=== PATIENT | female | born 1955 | race Caucasian/White ===

== ENCOUNTER 2019-06-30 10:05 | Emergency (ER) | payer MEDICARE, SELFPAY ==
[2019-06-30 10:38] VITALS: BP 145/65; PULSE 79; RESP 18; TEMP 36.9; O2SAT 99
--- NOTE | 2019-06-30 10:40 | ED.URI ---
HPI - URI/Sore Throat General Chief Complaint: Upper Respiratory Infection Stated Complaint: pos sinus infection Time Seen by Provider: 06/30/19 10:34 Source: patient and RN notes reviewed Mode of arrival: ambulatory Limitations: no limitations History of Present Illness HPI Narrative: Patient presents today with a 3-week history of sinus pressure, nasal congestion, rhinorrhea, postnasal drip, mild cough. Symptoms have worsened over the last 3 days to include severe right cheek pain and right ear pain. Prior to onset of symptoms, patient had a vitrectomy of the right eye and states that she had to spend most of the preceding 3 weeks lying prone because of this procedure. She was told by her eye doctor that she may have some sinus symptoms due to this positioning. Patient reports history of chronic sinusitis. She has been using saline spray, DayQuil, Flonase. No recent antibiotic use. MD elicited complaint: sinus pain Related Data Home Medications Medication Instructions Recorded Confirmed albuterol sulfate 90 mcg INHALATION 3XW PRN 06/30/19 06/30/19 atorvastatin 20 mg PO DAILY 06/30/19 06/30/19 insulin detemir U-100 [Levemir 45 unit SUBCUT DAILY 06/30/19 06/30/19 FlexTouch U-100 Insuln] lisinopril 2.5 mg PO DAILY 06/30/19 06/30/19 lorazepam 1 mg PO DAILY 06/30/19 06/30/19 metformin 1,000 mg PO BID 06/30/19 06/30/19 Allergies Allergy/AdvReac Type Severity Reaction Status Date / Time codeine AdvReac Mild Dizziness Verified 06/30/19 10:34 Review of Systems Review of Systems: Narrative: CONSTITUTIONAL: Denies body aches, fever, chills, or sweats. EYES: Denies visual changes, redness, or discharge. ENT: Denies sore throat. + Nasal congestion, sinus pressure, postnasal drip, rhinorrhea, right ear pain CARDIOVASCULAR: Denies chest pain, palpitations, or edema. RESPIRATORY: Denies dyspnea.+ Cough GASTROINTESTINAL: Denies abdominal pain, nausea, vomiting, or diarrhea. GENITOURINARY: Denies dysuria or hematuria. SKIN: Denies rash, itching, or wounds. MUSCULOSKELETAL: Denies back pain, joint pain, or myalgia. NEUROLOGIC: Denies headache, numbness, tingling, or weakness. PSYCH: Denies depression or anxiety. [facility] Past Medical History Medical History (Updated 06/30/19 @ 10:44 by Sherlyn Morin, DIA, ) Diabetes Hypercholesterolemia Hypertension Surgical History Surgical History (Updated 06/30/19 @ 10:42 by Sherlyn Morin, [facility], ) H/O vitrectomy Comments At time of signature, I have reviewed and agree with nursing past medical, surgical, social and family history unless otherwise noted. Please see nursing chart for further information. There is no relevant family history pertinent to the presenting complaint Exam Narrative: Exam Narrative: GENERAL: Mild-appearing, well-nourished, and in no acute distress. HEAD: Normocephalic, atraumatic. EYES: EOMI. No redness or drainage. Conjunctivae normal. ENT: Mucous membranes pink and moist. Nares congested. No rhinorrhea. TMs normal bilaterally. Throat normal. Uvula midline. Right maxillary sinus tenderness. NECK: Normal AROM. Supple. No lymphadenopathy. CHEST: No respiratory distress. Clear to auscultation. HEART: Regular rate and rhythm. No murmur appreciated. Normal peripheral pulses. EXTREMITIES: Normal range of motion. No edema. SKIN: Warm, dry, no rash. NEURO: No focal deficits. Alert and oriented x3. Gait steady. PSYCH: Normal affect. No signs of depression or anxiety. Course Vital Signs Vital signs: Vital Signs Temperature 98.4 F 06/30/19 10:38 Pulse Rate 79 06/30/19 10:38 Respiratory Rate 18 06/30/19 10:38 Blood Pressure 145/65 H 06/30/19 10:38 Pulse Oximetry 99 06/30/19 10:38 Temperature 98.4 F 06/30/19 10:38 Pulse Rate 79 06/30/19 10:38 Respiratory Rate 18 06/30/19 10:38 Blood Pressure 145/65 H 06/30/19 10:38 Pulse Oximetry 99 06/30/19 10:38 Reviewed. Pt has been instructed to follow up with he
== END 2019-06-30 10:50 | disposition home or self-care (01) ==
PROVIDERS: Emergency Provider Nurse Practitioner
DX: J01.00 Acute maxillary sinusitis, unspecified (principal); E11.9 Type 2 diabetes mellitus without complications; E78.00 Pure hypercholesterolemia, unspecified; I10 Essential (primary) hypertension
CPT/HCPCS: 99213; G0463

== ENCOUNTER 2024-12-13 11:40 | Outpatient (CLI) | payer MEDICARE, SELFPAY ==
--- NOTE | ~2024-12-13 | XR_ITS ---
EXAMINATION: XR abdomen/kub 1V DATE: 12/13/2024 11:59 INDICATION: Calculus of kidney TECHNIQUE: A supine view of the abdomen on 2 radiographs was obtained. COMPARISON: None. FINDINGS: No free air under the diaphragm. Large amount of stool in nondilated large bowel. Small amount of air in nondilated small bowel. 5 mm calcification projects over the right mid abdomen likely a renal stone. There are a few less than 1.0 cm calcifications projecting over the pelvis which may represent ph leboliths, however, a distal ureteral stone or bladder stone or possible. IMPRESSION: 1. Nonspecific abdomen with a large amount of stool. 2. There is a 5 mm calcification projecting over the right mid abdomen possibly a renal stone. 3. There are a few less than 1.0 cm calcifications projecting over the pelvis which may represent phleboliths, however, a distal ureteral stone or bladder stone or possible. If symptoms persist or worsen, consider a CT of the abdomen and pelvis are further assessment. Reviewed, dictated and finalized at location Q. IMPRESSION: 1. Nonspecific abdomen with a large amount of stool. 2. There is a 5 mm calcification projecting over the right mid abdomen possibly a renal stone. 3. There are a few less than 1.0 cm calcifications projecting over the pelvis w hich may represent phleboliths, however, a distal ureteral stone or bladder sto ne or possible. If symptoms persist or worsen, consider a CT of the abdomen and pelvis are furt her assessment.
== END 2024-12-13 11:41 | disposition home or self-care (01) ==
LOC: MICIMG 11:49
PROVIDERS: PCP Urology; Visit Provider Urology
DX: N20.0 Calculus of kidney (principal)
CPT/HCPCS: 74018

== ENCOUNTER 2025-01-26 11:12 | Outpatient (CLI) | payer MEDICARE, SELFPAY ==
--- NOTE | 2025-01-26 11:34 | ECG_ITS ---
Test Date: 2025-01-26 12:01:50 Measurements Intervals [place] Rate: 74 P: 11 CT: 144 QRS: 62 QRSD: 109 T: 50 QT: 397 QTc: 443 Interpretive Statements SINUS RHYTHM MINIMAL Q WAVES- INF/LAT LEADS BASELINE ARTIFACT- V3 BORDERLINE ECG No previous ECG available for comparison Electronically Signed On 01-26-2025 12:26:23 CDT by Alberto Singer D.O.
[2025-01-26 11:56] LABS: Hematocrit 37.9 % (37.0-47.0); Hemoglobin 12.7 g/dL (12.0-15.0)
[2025-01-26 12:10] LABS: INR 0.9; Prothrombin Time 12.4 Seconds (11.1-14.7)
[2025-01-26 12:12] LABS: Partial Thromboplastin Time 24.8 Seconds (22.3-36.8)
[2025-01-26 12:18] LABS: Add Urine Microscopic? YES; Appearance Urine Clear (Clear); Glucose Urine UA Negative (Negative); Leukocyte Esterase Ur 2+ LEU/UL (Negative); Need Manual Microscopic Reviewed; Nitrate Urine Negative (Negative); Non Pathogenic Casts 0-2; Specific Grav Ur 1.020 (1.001-1.035)
[2025-01-26 14:49] LABS: Anion Gap 9 mmol/L (4-12); Blood Urea Nitrogen 17 mg/dL (7-17); Calcium 9.5 mg/dL (8.4-10.2); Carbon Dioxide 23 mmol/L (22-30); Chloride 104 mmol/L (98-107); Estimated Glomerular Filt Rate > 60; Glucose 83 mg/dL (65-110); Potassium 4.5 mmol/L (3.4-5.0); Sodium 136 mmol/L (137-145)
== END 2025-01-26 11:13 | disposition home or self-care (01) ==
LOC: ANHLAB 11:13
PROVIDERS: Anesthesiology; Visit Provider Urology
DX: R94.31 Abnormal electrocardiogram [ECG] [EKG] (principal); N20.0 Calculus of kidney; C91.10 Chronic lymphocytic leukemia of B-cell type not having achieved remission; E11.9 Type 2 diabetes mellitus without complications; I10 Essential (primary) hypertension; E78.5 Hyperlipidemia, unspecified
CPT/HCPCS: 36415; 80048; 81001; 85014; 85018; 85610; 85730; 93005

== ENCOUNTER 2025-01-28 00:48 | Day surgery (SDC) | payer MEDICARE, SELFPAY ==
--- NOTE | 2025-01-20 16:30 | PM.HPGS ---
History of Present Illness History of Present Illness Consent: Risks, benefits, and alternatives have been discussed and questions answered. Patient agrees to proceed with procedure. 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 ?She had a renal ultrasound at [facility] in [place] in October 2024 that showed a 8 x 13 mm nonobstructing right lower calyceal stone. ?I will have her get a KUB and we will consider ESWL Addendum Note?(Carl Monzon MD; 12/15/2024 6:35 AM) KUB: no identifiable calcified renal calculi. ? Will discuss alkalinization. Addendum Note?(Carl Monzon MD; 12/15/2024 6:22 PM) Despite urinalysis pH of 6 I think we will try urinary alkalinization with potassium citrate for 2 weeks followed by a renal ultrasound. ? I discussed this with the patient on the phone Addendum Note?(Carl Monzon MD; 01/10/2025 7:48 AM) Renal u/s (01/06/25): ?Right kidney: 1cm right lower pole stone ?Left kidney: 5mm left upper pole stone Addendum Note?(Carl Monzon MD; 01/10/2025 5:14 PM) I spoke with patient. ?Unfortunately her renal ultrasound shows persistent stones despite alkalinization. ?She is been reluctant to have ureteroscopy. ?I will plan an intervention on the right kidney on a day when we could do either ESWL or ureteroscopy with laser lithotripsy. ?Specifically, I will plan right ESWL, possible right ureteroscopy with laser lithotripsy, stone extraction, retrograde pyelogram and stent placement Review of Systems Review of Systems: All systems reviewed & are unremarkable except as noted in HPI and below PMFSH Past Medical History Medical History (Updated 01/20/25 @ 16:31 by Carl Monzon MD) Hypercholesterolemia Hypertension Diabetes Surgical History Surgical History (Updated 06/30/19 @ 10:42 by Sherlyn Morin, [facility], ) H/O vitrectomy Meds Home Medications and Allergies Home Medications ?Medication ?Instructions ?Recorded ?Confirmed ?Type albuterol sulfate 90 mcg/actuation 90 mcg inhalation 3XW PRN 06/30/19 06/30/19 History aerosol inhaler Shortness Of Breath amoxicillin 875 mg-potassium 1 tablet PO Q12H 10 days #20 tabs 06/30/19 Rx clavulanate 125 mg tablet (Augmentin) atorvastatin 20 mg tablet 20 mg PO DAILY 06/30/19 06/30/19 History insulin detemir U-100 100 unit/mL 45 unit subcut DAILY 06/30/19 06/30/19 History (3 mL) subcutaneous pen (Levemir FlexTouch U-100 Insulin) lisinopril 2.5 mg tablet 2.5 mg PO DAILY 06/30/19 06/30/19 History lorazepam 1 mg tablet 1 mg PO DAILY 06/30/19 06/30/19 History metformin 1,000 mg tablet 1,000 mg PO BID 06/30/19 06/30/19 History Allergies Allergy/AdvReac Type Severity Reaction Status Date / Time codeine AdvReac Mild Dizziness Verified 06/30/19 10:34 Exam Const: General: no acute distress Resp: Effort & Inspection: normal respiratory effort GI: Inspection: non-distended GI Palp: No abdominal tenderness and No Guarding due to palpation present (GI) Auscultation: normal bowel sounds Assessment and Plan Assessment and plan (1) Right renal stone: Code(s): N20.0 - Calculus of kidney Status: Acute Assessment and Plan: Right ESWL, possible right ureteroscopy with laser lithotripsy, stone extraction, retrograde pyelogram and stent placement
[2025-01-25 09:34] VITALS: BMI 27.9
--- NOTE | 2025-01-25 09:48 | PC.NURSE ---
Addendum entered by Lynette Roberts RN 01/25/25 10:03: DOS is 01/28/25 not 26 pt aware KATIE, pt to get labs and EKG done tomorrow here at [facility] Original Note: [facility] has started construction of its new state of the art ER which will open Spring 2026. With this, we anticipate parking may be a challenge for some our surgical patients and families. Parking spaces are limited but are available for all Surgical, obstetrics, and ER patients sharing this lot. If you arrive and find you are having a hard time finding a parking space, please note that we understand the challenges, please drive around the hospital and park near Hospital Entrance 1. When you enter this entrance, you can ask a volunteer to direct or take you back to the surgical waiting area to check in. We appreciate everyone?s understanding of these expected challenges while we build for your future. Report to the Outpatient Waiting Room, entrance under the green pavilion located off [address], at time ____06:30am___ on date ____01/28/26 ___. Planned Procedure Time: __08:30am .? Time changes happen often and if your time is changed the preop area will call you the afternoon before. - You and your visitor will be asked to self-screen and do not enter if you have any COVID symptoms. Please call surgeon if you need to reschedule. - A mask is optional within the hospital at this time. Patients may have clear liquids (water, carbonated beverages, clear teas, apple juice) until 3 hours prior to surgery with a maximum of 20 ounces. - No food from midnight until time of surgery and no smoking, or chewing tobacco (or any form of nicotine). No chewing gum, candy or mints. Take only the following medications with a SIP of water on the morning of surgery: Albuteral inhaler if needed DO NOT STOP ANY OF YOUR OTHER PRESCRIPTION MEDICATIONS PRIOR TO SURGERY EXCEPT THE FOLLOWING Hold all vitamins and supplements and ASPIRIN/NSAIDS for [address] Monzon Date to take last dose__01/21/25 Please no make-up, nail uzbek, hairspray, perfume, deodorant, or body powder the day of surgery.? No jewelry (including any body piercings) or valuables the day of surgery, leave them at home.? Please take a shower or bath the night before, or the morning of, surgery with an antibacterial soap.? Wear comfortable, loose fitting clothing.? - Jewelry must be removed prior to entering the operating room.? Rings and piercings that are not removed may be cut off. - The hospital will not accept responsibility for valuables.? - Please leave all valuables, including medications, at home the day of surgery. If you are going home after surgery, a licensed courier driver must drive you home.? - NO public transportation without another adult if you receive anesthesia. - We recommend that an adult stay with you for 24 hours following discharge. - We also recommend that you do not drive, make important decision, drink alcoholic beverages, or take any drugs that were not prescribed by your health care provider for at least 24 hours after your discharge time. Follow any additional instructions given to you from your surgeon. Telephone instructions given to __Patient and asked if any additional questions and then verbalized understanding. Patient advised to call surgeon office or pre surgery nurse liaison [phone] if any additional questions.
[2025-01-28] VITALS (7 sets, daily range): BP systolic 101–129; BP diastolic 56–64; PULSE 75–91; RESP 12–18; TEMP 36.6–36.9; O2SAT 99–100; BMI 28.1
--- NOTE | ~2025-01-28 | XR_ITS ---
EXAMINATION: XR abdomen/kub 1V DATE: 01/28/2025 06:39 INDICATION: Pre litho right-sided stone TECHNIQUE: A supine view of the abdomen on 2 radiographs was obtained. COMPARISON: CT abdomen and pelvis 01/28/2025 FINDINGS: Large amount of stool and air in the abdomen. 5 mm calcification in the right kidney. Vascular calcifications are noted. Small amount of air in nondilated small bowel. There are a few less than 1.0 cm calcifications projecting over the pelvis which may represent phleboliths, however, a distal ureteral stone or bladder stone or possible. IMPRESSION: 1. 5 mm calcification in the right kidney. 2. Nonspecific abdomen with a large amount of stool. Reviewed, dictated and finalized at location Q.
--- NOTE | ~2025-01-28 | CT_ITS ---
EXAMINATION: CT abdomen pelvis wo con DATE: 01/28/2025 07:36 INDICATION: Kidney stone. TECHNIQUE: Computed tomography (CT) of the abdomen and pelvis was performed without intravenous contrast. Automated exposure control and iterative reconstruction technique were employed. The dose-length product was 279.22 mGy-cm. COMPARISON: None. FINDINGS: The visualized portions of the lung bases demonstrate mild atelectasis. No pleural effusion. The heart size is normal. No pericardial effusion. There are coronary artery calcifications. The liver, gallbladder, spleen, pancreas, and adrenal glands are normal. There is cortical thinning of the kidneys. There is a 3.3 cm cyst in right kidney. There is a 12 mm stone in right kidney. There is a 2 mm stone in left kidney. The appendix is fluid-filled with diameter of 11 mm. There are no pathologically enlarged lymph nodes. There is no free intraperitoneal fluid. There is moderate lumbar spondylosis. IMPRESSION: 1. Bilateral nonobstructing kidney stones. 2. Appendiceal diameter of 11 mm, which is indeterminate for appendicitis. Correlate with physical exam. Reviewed, dictated and finalized at location E. IMPRESSION: 1. Bilateral nonobstructing kidney stones. 2. Appendiceal diameter of 11 mm, which is indeterminate for appendicitis. Hoang elate with physical exam.
[2025-01-28] MEDS: LACTATED RINGERS 1,000 ML 30 ML IV CONT (07:00)
--- NOTE | 2025-01-28 08:40 | WPDANESEPPF ---
Anes - Initial Pre Proc Eval Procedure: Operation Date: 01/28/25 08:30 Proposed Procedures p Right Extracorporeal Shock Wave Lithotripsy - Carl Monzon MD s Cystoscopy, Possible Right Ureteroscopy with Holmium Laser Lithotripsy, Possible Right Stone Extraction, Possible Right Retrograde Pyelogram, Possible Right Stent Placement - Carl Monzon MD Date/Time: 01/28/25 08:40 Surgeon: Carl Monzon MD Pre Op Diagnosis: Elias Kidney Stones Patient Data Age: 69 Gender: F Height: 1.7 m Weight: 81.5 kg Last Vital Signs Temp 36.9 C 01/28/25 06:30 Pulse 82 01/28/25 06:30 BP 117/60 01/28/25 06:30 Pulse Ox 100 01/28/25 06:30 O2 Del Method Room Air 01/28/25 06:30 Allergies Allergy/AdvReac Type Severity Reaction Status Date / Time codeine AdvReac Mild Dizziness Verified 01/28/25 07:22 Home Medications ?Medication ?Instructions ?Recorded ?Confirmed ?Type albuterol sulfate 90 mcg/actuation 90 mcg inhalation 3XW PRN 06/30/19 01/25/25 History aerosol inhaler Shortness Of Breath atorvastatin 20 mg tablet 20 mg PO DAILY 06/30/19 01/25/25 History aspirin 81 mg capsule 81 mg PO DAILY 01/25/25 01/25/25 History cholecalciferol (vitamin D3) 1,250 1,250 mcg PO WEEKLY 01/25/25 01/25/25 History mcg (50,000 unit) capsule insulin glargine 100 unit/mL (3 22 unit subcut DAILY diabetes 01/25/25 01/25/25 History mL) subcutaneous pen (Lantus Solostar U-100 Insulin) lisinopril 10 mg tablet 10 mg PO DAILY 01/25/25 01/25/25 History metformin 750 mg tablet,extended 750 mg PO .BID 01/25/25 01/25/25 History release 24 hr minoxidil 2.5 mg tablet 2.5 mg PO DAILY 01/25/25 01/25/25 History tirzepatide 7.5 mg/0.5 mL 7.5 mg subcut WEEKLY diabets 01/25/25 01/25/25 History subcutaneous pen injector (Doretha) valacyclovir 1 gram tablet 1,000 mg PO Q12H Shingles 01/25/25 01/25/25 History (Valtrex) vitamin B12 0.5 mg-folic acid 1 mg 1 tablet PO DAILY 01/25/25 01/25/25 History tablet (Foltrate) Laboratory Tests 01/28/25 07:12 POC Capillary Glucose 103 mg/dl (65-105) Patient hx anesthesia problems: none Family hx anesthesia problems: none Results Review: All pre-operative results and documents have been reviewed as part of the pre-operative evaluation. PMFSH Past Medical History Medical History CLL (chronic lymphocytic leukemia) Hypercholesterolemia Hypertension Diabetes Surgical History Surgical History H/O vitrectomy Social History Social History Smoking status: Never smoker Second hand tobacco smoke exposure: Yes Alcohol intake: never Substance use: never Living arrangements: with family Spiritual care concerns: No Anes - Eval Final PreProcedure Day of Procedure 01/28/25 08:40 Patient weight: overweight Heart: regular rate and rhythm Lungs: clear to auscultation Airway: Mallampati scale class 1 Neurological: alert and oriented Last oral intake: >/= 8 hours ASA classification: III Emergent: no Anesthetic plan: proceed Anesthesia type and monitoring: general LMA and standard monitoring Results Review: All pre-operative results and documents have been reviewed as part of the pre-operative evaluation. Informed Consent: The patient's anesthetic plan and its attendant risks and benefits were discussed with the patient/family/POA. Questions were solicited and answers provided to the satisfaction of the patient/family/POA.
[2025-01-28] MEDS: ceFAZolin 2 GM in SODIUM CHLORIDE 0.9% IV 50 ML 100 ML IVPB (08:45)
--- NOTE | 2025-01-28 08:47 | P.HPUP_ITS ---
History and Physical Update Update Date/Time: 01/28/25 08:47 KUB this morning: right renal stone clearly visible / confirmed with CT- abd/pelvis wo contrast. Will proceed with right ESWL. History and Physical has been reviewed, including an updated exam of the patient. There are NO changes in the patient's condition. Risks, benefits, and alternatives have been discussed and questions answered. Patient agrees to proceed with procedure.
--- NOTE | 2025-01-28 09:05 | W.PM.PROC2 ---
Procedure Note - Detailed Date of Procedure 01/28/25 Pre-op Diagnosis Right kidney stone Post-op Diagnosis Same Procedure Performed Right ESWL Surgeon Carl Monzon MD Anesthesia General Description of Procedure The patient was brought to the operative suite where she was placed in the supine position on the Dornier lithotripsy table. The focal point of the lithotripter was placed at a 5-6mm right lower pole calculus. A total of 2500 shocks were delivered at a power setting of 1-4. There appeared to be good fragmentation of the stone. The patient tolerated the procedure well and was taken to the recovery room in good condition. Drains No Packing No Pathology None sent Complications No immediate complications
== END 2025-01-28 10:58 | disposition home or self-care (01) ==
PROVIDERS: Visit Provider Urology
PROC: (CPT 50590; principal; 2025-01-28 08:30)
DX: N20.0 Calculus of kidney (principal); I10 Essential (primary) hypertension; E11.9 Type 2 diabetes mellitus without complications; E78.00 Pure hypercholesterolemia, unspecified; C91.10 Chronic lymphocytic leukemia of B-cell type not having achieved remission; Z79.51 Long term (current) use of inhaled steroids; Z79.4 Long term (current) use of insulin; Z79.84 Long term (current) use of oral hypoglycemic drugs; Z79.82 Long term (current) use of aspirin; Z79.85 Long-term (current) use of injectable non-insulin antidiabetic drugs; Z98.890 Other specified postprocedural states
CPT/HCPCS: 50590; 36415; 74018; 74176; 80048; 81001; 82948; 85014; 85018; 85610; 85730; 87077; 87086; 87186; 93005; J0690; J1100; J2405; J2704; J3010; J7120

== ENCOUNTER 2025-02-08 12:48 | Outpatient (CLI) | payer MEDICARE, SELFPAY ==
--- NOTE | ~2025-02-08 | XR_ITS ---
Abdominal radiograph(s) INDICATION: Right-sided lithotripsy COMPARISON: CT abdomen and pelvis 01/28/2025 TECHNIQUE: 2 view supine AP abdomen FINDINGS: Curvilinear stone overlying right kidney lower pole. Tiny kidney stones left side not seen. No ureteral calculi identified. Scattered colonic gas and stool. Small bowel loops not well seen. No evidence of organomegaly. No acute bony abnormality. IMPRESSION: 1. Curvilinear right renal stone. 2. No ureteral stones identified. Reviewed, dictated and finalized at location R.
--- OUTSIDE RECORDS SUMMARY | 2025-02-08 15:28 | XMS_ITS ---
Author Organization [facility] Address [address] [place] [address] Phone Care Team Providers Care International Relations Professor Name Role Phone Josephine Pagan MD Primary Care Provider [phone] Active Problems Problem Noted Date Diagnosed Date Hypogammaglobulinemia 09/27/2024 CLL (chronic lymphocytic leukemia) 09/23/2024 Current Treatment and Therapy Plans SUPPORT - IVIG (OCTAGAM/PRIVIGEN - GAMMAGARD/GAMUNEX) - CCSCI* Plan Start Date: 10/06/2024 Plan Provider:Jose Alfredo Burciaga MD Linked Problems CLL (chronic lymphocytic antonieta kemia)Hypogammaglobulinemia Treatment Medications Current Day (Day 1 , Cycle 5 - Planned for 02/12/2025) Next Day (Day 1, Cycle 6 - Planned for 03/13/2025) No medications scheduled. No medications schedul ed. No medications scheduled. Past Treatment and Therapy Plans No past plan information found.
--- OUTSIDE RECORDS SUMMARY | 2025-02-08 15:28 | XMS_ITS | Encounter Summary ---
Author Organization [facility] Address [address] [place] [address] Care Team Providers Care Oncology Transplant Network Manager Name Role Phone Josephine Pagan MD Primary Care Provider [phone] Dante Marie MD Primary Care Provider [phone] Reason for Visit * Reason Onset Date Comments Post Op Call 06/05/2022 Left message Encounter Details Date Type Department Care Team (Late Contact Info) Description 06/05/2022 Telephone [facility] ENDOSCOPY [address] [place] [phone] Del Garcia, RN Post Op Call (Left message) Social History Tobacco Use Types Packs/Day Years Used Date Smoking Tobacco: Never Smokeless Tobacco: Never Alcohol Use Standard Drinks/Week Comments No 0 (1 standard drink = 0.6 oz pur e alcohol) Comments Unknown Sex and Gender Information Value Date Recorded Sex Assigned at Not on file 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 Author Medication Management General On track( 024 2:04 PM BEADING MACHINE OPERATOR) Denisha Hawk, RN Note: Expected end date: on-going Interventions: Take all medications as prescribed Let your doctor know right away about any changes in your medications Make sure to request a refill of your medication at least one week prior to your last dose documented as of this encounter Visit Diagnoses Not on filedocumented in this encounter Care Teams Oncology Transplant Network Manager Relationship Specialty Start Date End Date Josephine Pagan MD PCP - General 09/09/17 09/16/22 Dante Marie MD [address] [place] [address] PCP - General Family Medicine 09/17/22 documented as of this encounter
--- OUTSIDE RECORDS SUMMARY | 2025-02-08 15:28 | XMS_ITS | Encounter Summary ---
Author Organization [facility] Address [facility] [place] [address] Care Team Providers Care Drug Abuse Program Coordinator Name Role Phone Teressa Collazo [facility]- Unavailable [phone] Sukumar Evans MD Primary Care Provider [phone] Nadeen Wall MD Unavailable Geneva Zelaya MD Unavailable Encounter Details Date Type Department Care Team (Latest Contact Info) Description 12/09/2024 MyChart Message Enc [facility] Multispecialty Care - [facility] [address] [facility], [address] [place] [phone] Kana Person MD [address] [facility] [address] [place], [place] [phone] MRI of the ABDOMEN Social History Tobacco Use Types Packs/Day Years Used Date Smoking Tobacco: Never Passive Smoke Exposure: Never Smokeless Tobacco: Never Alcohol Use Standard Drinks/Week Comments No 0 (1 standard drink = 0.6 oz pur e alcohol) AUDIT-C Answer Date Recorded Frequency of Alcohol Consumption Never 03/22/2019 Average Number of Drinks Not on file 019 Frequency of Binge Drinking Not on file 05/2018 PHQ-2 Answer Date Recorded Patient Health Questionnaire-2 Score 0 10/15/2024 Comments No Sex and Gender Information Value Date Recorded Sex Assigned at Female 10/11/2024 9:43 AM CDT Legal Sex Female 8:53 AM BLACK STUDIES PROFESSOR Gender Identity Female 10/11/2024 9:43 AM CDT Sexual Orientation Not on file documented as of this encounter Plan of Treatment Upcoming Encounters Date Type Department Care Team (Late st Contact Info) Description 04/27/2025 8:40 AM BLACK STUDIES PROFESSOR Office Visit [facility] Family Medicine [address] [address] Sukumar Evans MD [address] [place] [phone] 01/02/2026 9:15 AM CDT Office Visit [facility] [place] [phone] Geneva Zelaya MD [address] [place], [place] [phone] documented as of this encounter Visit Diagnoses Not on filedocumented in this encounter Care Teams Drug Abuse Program Coordinator Relationship Specialty Start Date End Date Sukumar Evans MD [address] [place] [address]. [place] [phone] PCP - General FAMILY PRACTICE 03/09/24 Teressa Collazo, DIA- Nurse Practitioner Nurse Practitioner Family 01/24/22 Nadeen Wall MD [address] [place] [address] [employer] CLINICAL CARDIAC ELECTROPHYSIOLOGY 10/04/24 Geneva Zelaya MD [address] [place], [place] [phone] [employer] CARDIOVASCULAR DISEASE 10/04/24 documented as of this encounter
--- OUTSIDE RECORDS SUMMARY | 2025-02-08 15:28 | XMS_ITS | Encounter Summary ---
Author Organization [facility] Address [facility] [place] [address] Care Team Providers Care Compensation/Benefits Specialist Name Role Phone Teressa Collazo [facility]- Unavailable [phone] Sukumar Evans MD Primary Care Provider [phone] Nadeen Wall MD Unavailable Geneva Zelaya MD Unavailable Encounter Details Date Type Department Care Team (Latest Contact Info) Description 01/30/2025 MyCVeracodet Message Enc [facility] Multispec[facility]ty Care - [facility] [address] [facility], [address] [place] [phone] Kana Person MD 3 [facility] [address] [place], [place] [phone] MRI RESULTS 01/19/25 Social History Tobacco Use Types Packs/Day Years Used Date Smoking Tobacco: Never Passive Smoke Exposure: Never Smokeless Tobacco: Never Alcohol Use Standard Drinks/Week Comments Not Currently 0 (1 standard drink = 0.6 oz pure alcohol) Maybe once a year during holiday AUDIT-C Answer Date Recorded Frequency of Alcohol Consumption Never 03/22/2019 Average Number of Drinks Not on file 019 Frequency of Binge Drinking Not on file 05/2018 PHQ-2 Answer Date Recorded Patient Health Questionnaire-2 Score 0 01/25/2025 Comments No Sex and Gender Information Value Date Recorded Sex Assigned at Female 10/11/2024 9:43 AM CDT Legal Sex Female 8:53 AM MANDREL MAKER Gender Identity Female 10/11/2024 9:43 AM CDT Sexual Orientation Not on file documented as of this encounter Plan of Treatment Upcoming Encounters Date Type Department Care Team (Late st Contact Info) Description 04/27/2025 8:40 AM MANDREL MAKER Office Visit [facility] Family Medicine - [place] [address] [place] [address] Sukumar Evans MD [address] [place] [address] 01/02/2026 9:15 AM CDT Office Visit [facility] [address] [place] [phone] Geneva Zelaya MD [address] [place], [place] [phone] documented as of this encounter Visit Diagnoses Not on filedocumented in this encounter Care Teams Compensation/Benefits Specialist Relationship Specialty Start Date End Date Sukumar Evans MD [address] [place] [phone] PCP - General FAMILY PRACTICE 03/09/24 Teressa Collazo FNP- Nurse Practitioner Nurse Practitioner Family 01/24/22 Nadeen Wall MD [address] [place] [phone] [employer] CLINICAL CARDIAC ELECTROPHYSIOLOGY 10/04/24 Geneva Zelaya MD [address] [place] [phone] [employer] CARDIOVASCULAR DISEASE 10/04/24 documented as of this encounter
--- OUTSIDE RECORDS SUMMARY | 2025-02-08 15:28 | XMS_ITS | Clinical Summary ---
Author Organization [facility] Address [address] [place] [phone] Care Team Providers Care Ruling Machine Operator Name Role Phone No, Physician Primary Care Provider [phone] Rico Reyes OD Unavailable [phone] Allergies Active Allergy Reactions Criticality Noted Date Comments Bacitracin Unknown,Swelling,Ot her (See comments) High 09/06/2019 reddness and tearing reddness and tearing Other reaction(s): Eyes Water & Itch Codeine Dizziness,Other (See comments),Rash Medium 08/05/2011 dizzy Guaifenesin Itching,Rash Medium 08/05/2011 Hydrocodone-Acetamino phen Other (See comments),Rash High 08/05/2011 nightmares Iodine Rash Medium 08/05/[address] scan Morphine Dizziness,Nausea And Vomiting,Other (See comments),Nausea & Vomiting Low 04/09/2016 Hypertension High blood pressure Other reaction(s): Other (see comment), Vomiting Hypertension Tramadol Nausea And Vomiting,Nausea & Vomiting Low 11/13/2013 Medications traZODone (DESYREL) 50 mg tablet Take 1 tablet (50 mg total) by mouth nightly 5 Active Mounjaro 7.5 mg/0.5 mL pen injector injection Inject 0.5 mL (7.5 mg total) under the skin once a week 4 Active metFORMIN XR (GLUCOPHAGE XR) 750 mg 24 hr tablet TAKE 2 TABLETS (1,500 MG TOTAL) BY MOUTH EVERY DAY WITH BREAKFAST 5 Active lisinopriL (PRINIVIL,ZESTR IL) 10 mg tablet Take 1 tablet (10 mg total) by mouth daily 4 Active atorvastatin (LIPITOR) 20 mg tablet Take 1 tablet (20 mg total) by mouth daily 4 Active moxifloxacin (VIGAMOX) 0.5 % ophthalmic solution Administer 1 drop into the right eye 4 (four) times a day 5 mL 5 Active valACYclovir (VALTREX) 1 gram tabletIndicatio ns:HSV epithelial keratitis 1 gram once a day po 61 tablet 3 5 Active moxifloxacin (VIGAMOX) 0.5 % ophthalmic solution Administer 1 drop into both eyes 3 (three) times a day 3 mL 1 5 Active Active Problems Problem Noted Date Diagnosed Date 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 3 Months Social History Tobacco Use Types Packs/Day Years Used Date Smoking Tobacco: Never Assessed Comments Unknown Sex and Gender Information Value Date Recorded Sex Assigned at Not on file Legal Sex Female 3:42 PM RESIDENT CARE PROVIDER Gender Identity Not on file Sexual Orientation Not on file Obstetrics History Plan of Treatment Health Maintenance Due Date Last Done Comments Colon Cancer Screening-Colonoscopy 1955 Depression Screening 1955 Fall Risk Assessment 1955 Hepatitis C Screening 1955 Well Visit 65+ 2018 Covid-19 Vaccine (2024-2 6 season) 2024 01/31/2021, 07/07/2020, 06/15/2020 Influenza Vaccine (#1) 2024 3, 02/22/2022, 02/15/2021, Additional history exists Breast Cancer Screening-Mammogram 05/20/2025 05/20/2024, 05/20/2024, 04/29/2023, Additional history exists Osteoporosis Screening-Bone Density Scan 08/04/2025 08/05/2023 DTaP/Tdap/Td Vaccine (3 - Td or Tdap) 11/21/2031 11/20/2021, 01/16/2012, 01/01/2007, Additional history exists Hepatitis B Screening Completed 08/28/1990 Zoster Vaccine Completed 04/06/2019, 09/2018, 02/07/2014 Pneumococcal vaccine 65+ Completed 024, 04/04/2023, 12/25/2018, Additional history exists Insurance [employer] MED[employer]ARE Care Teams Ruling Machine Operator Relationship Specialty Start Date End Date No, Physician PCP - General 05/19/24 Rico Reyes OD [id number] [place] [address] Referring Physician Optometry 01/14/25
--- OUTSIDE RECORDS SUMMARY | 2025-02-08 15:28 | XMS_ITS | Encounter Summary ---
Author Organization [facility] Address [facility] [place] [address] Care Team Providers Care Lean Consultant Name Role Phone Teressa Collazo [facility]- Unavailable [phone] Sukumar Evans MD Primary Care Provider Nadeen Wall MD Unavailable Geneva Zelaya MD Unavailable Encounter Details Date Type Department Care Team (Late st Contact Info) Description 12/23/2024 [facility] [address] [place] [phone] Sukumar Evans MD [facility] [facility] [place] [address] Social History Tobacco Use Types Packs/Day Years [...] AM CDT Legal Sex Female 8:53 AM PROGRAM SUPPORT ASSISTANT Gender Identity Female 10/11/2024 9:43 AM CDT Sexual Orientation Not on file documented as of this encounter Plan of Treatment Upcoming Encounters Date Type Department Care Team (Late st Contact Info) Description 04/27/2025 8:40 AM PROGRAM SUPPORT ASSISTANT [facility] - [place] [address] [place] [phone] Sukumar Evans MD [facility] [facility] [place] [address] 01/02/2026 9:15 AM CDT Office Visit [facility] [place] [phone] Geneva Zelaya MD [address] [place], [place] [phone] documented as of this encounter Visit Diagnoses Not on filedocumented in this encounter Care Teams Lean Consultant Relationship Specialty Start Date End Date Sukumar Evans MD [address] [place] [address]. [place] [phone] PCP - General FAMILY PRACTICE 03/09/24 Teressa Collazo FNP- Nurse Practitioner Nurse Practitioner Family 01/24/22 Nadeen Wall MD [address] [place] [phone] [facility] [employer] CLINICAL CARDIAC ELECTROPHYSIOLOGY 10/04/24 Geneva Zelaya MD [address] [place], [place] [phone] [facility] CARDIOVASCULAR DISEASE 10/04/24 documented as of this encounter
--- OUTSIDE RECORDS SUMMARY | 2025-02-08 15:28 | XMS_ITS | Clinical Summary ---
Author Organization [facility] Address [address] [place] [address] Care Team Providers Care Weight Count Operator Name Role Phone Teressa Collazo [facility]- Unavailable [phone] Sukumar Evans MD Primary Care Provider [phone] Nadeen Wall MD Unavailable Geneva Reece MD Unavailable Allergies Active Allergy Reactions Criticality Noted Date Comments Bacitracin Eyes Water & Itch 10/07/2019 Codeine Dizziness 03/22/2019 Guaifenesin Itching,Rash Medium 08/05/2011 Hydrocodone-Acetaminoph en Other (see comment),Rash,Unknow n High 08/05/2011 nightmares Iodine Rash Medium 08/05/[address] scan Morphine Other (see comment),Vomiting,Di zziness 03/22/2019 Hypertension Tramadol Nausea and Vomiting,Vomiting 11/13/2013 Medications aspirin EC (ECOTRIN) 81 MG tablet Take 1 tablet (81 mg total) by mouth daily. Active Accu-Chek FastClix Lancets Misc every day 020 Active vitamin B-12 (CYANOCOBALAMIN ) 1000 MCG tablet Take 1 tablet (1,000 mcg total) by mouth daily. Active ketoconazole (NIZORAL) 2 % cream APPLY TO FOOT TWICE A DAY 023 Active ketoconazole (NIZORAL) 2 % shampoo APPLY TO SCALP 3 TIMES WEEKLY 023 Active vitamin D3 (CHOLECALCIFERO L) 25 mcg tablet Take 1 tablet (1,000 Units total) by mouth daily. Active minoxidil (LONITEN) 2.5 MG tablet TAKE 1/4 TABLET BY MOUTH EVERY DAY X 3 MONTHS, THEN INCREASE TO 1/2 TABLET EVERY DAY 024 Active B-D UF III MINI PEN NEEDLES 31G X 5 MM MiscIndications :Type 2 diabetes mellitus with hyperglycemia, with long-term current use of insulin ([facility] HHS/HCC) USE DIRECTED UP TO TWICE DAILY (WITH LEVEMIR PEN) 200 each 3 024 Active ondansetron (ZOFRAN) 4 MG tablet Take 1 tablet (4 mg total) by mouth every 8 (eight) hours as needed. 024 Active ACCU-CHEK GUIDE test stripIndication s:Type 2 diabetes mellitus with hyperglycemia, with long-term current use of insulin ([facility] HHS/HCC) 1 strip by Other route 3 (three) times daily as needed. Use as instructed 100 strip 5 024 Active lisinopril (PRINIVIL) 10 MG tabletIndicatio ns:Primary hypertension Take 1 tablet (10 mg total) by mouth daily. 90 tablet 3 025 Active metFORMIN XR (GLUCOPHAGE-XR) 750 MG 24 hr tabletIndicatio ns:Type 2 diabetes mellitus with hyperglycemia, with long-term current use of insulin ([facility] HHS/HCC) TAKE 2 TABLETS (1,500 MG TOTAL) BY MOUTH EVERY DAY WITH BREAKFAST 180 tablet 3 025 Active moxifloxacin (VIGAMOX) 0.5 % ophthalmic solution 1 drop. 025 Active atorvastatin (LIPITOR) 20 MG tabletIndicatio ns:Type 2 diabetes mellitus with hyperglycemia, with long-term current use of insulin ([facility] HHS/HCC) Take 1 tablet (20 mg total) by mouth daily. 90 tablet 3 025 Active LANTUS SOLOSTAR 100 UNIT/ML injection (PEN)Indication s:Type 2 diabetes mellitus with hyperglycemia, with long-term current use of insulin ([facility] HHS/HCC) Inject 20 Units into the skin nightly at bedtime. 6 mL 2 025 Active MOUNJARO 7.5 MG/0.5ML injectionIndica tions:Type 2 diabetes mellitus with hyperglycemia, with long-term current use of insulin ([facility] HHS/HCC) INJECT 1 SYRINGE SUBCUTANEOUSLY ONCE A WEEK FOR DIABETES 12 mL 025 Active triamcinolone (KENALOG) 0.1 % cream APPLY CREAM EXTERNALLY TWICE DAILY TO AFFECTED AREA FOR 14 DAYS 025 Active albuterol sulfate HFA 108 (90 Base) MCG/ACT inhalerIndicati ons:Moderate asthma, unspecified whether complicated, unspecified whether persistent (HHS/HCC) TAKE 1 2 PUFFS INHALED BY MOUTH EVERY 4 (FOUR) HOURS NEEDED FOR WHEEZING / COUGH 18 g 5 025 Active valACYclovir (VALTREX) 1 g tablet Take 2 tablets (2,000 mg total) by mouth daily. 025 Active albuterol (PROVENTIL) (2.5 MG/3ML) 0.083% nebulizer solutionIndicat ions:Moderate asthma, unspecified whether complicated, unspecified whether persistent (HHS/HCC) INHALE 3 MLS (2.5 MG TOTAL) NEBULIZED EVERY 4 (FOUR) HOURS NEEDED FOR WHEEZING 360 mL 2 025 Active fluticasone propionate (FLONASE) 50 MCG/ACT nasal sprayIndication s:Acute non-recurrent maxillary sinusitis USE 1 SPRAY BY EACH NOSTRIL ROUTE 2 (TWO) TIMES DAILY 16 g 5 023 2024 Discontinued omeprazole (PRILOSEC) 40 MG capsule Take 1 capsule (40 mg total) by mouth as needed. 023 2024 Discontinued ipratropium (ATROVENT) 0.03 % nasal spray SPRAY 2 SPRAYS INTO EACH NOSTRIL TWICE A DAY 024 2024 Discontinued [place]-3 Fatty Acids (FISH OIL) 500 MG capsule Take 500 mg by mouth daily. 2024 Discontinued albuterol sulfate HFA 108 (90 Base) MCG/ACT inhalerIndicati ons:Moderate asthma, unspecified whether complicated, unspecified whether persistent (HHS/HCC) TAKE 1 2 PUFFS INHALED BY MOUTH EVERY 4 (FOUR) HOURS NEEDED FOR WHEEZING / COUGH 18 g 5 024 2024 Discontinued(R eorder) albuterol (PROVENTIL) (2.5 MG/3ML) 0.083% nebulizer solutionIndicat ions:Moderate asthma, unspecified whether complicated, unspecified whether persistent (HHS/HCC) INHALE 3 MLS (2.5 MG TOTAL) NEBULIZED EVERY 4 (FOUR) HOURS NEEDED FOR WHEEZING 360 mL 2 024 2024 Discontinued(R eorder) Beclomethasone Diprop HFA (QVAR REDIHALER) 80 MCG/ACT AEROSOL, BREATH ACTIVATEDIndica tions:Moderate asthma, unspecified whether complicated, unspecified whether persistent (HHS/HCC) Inhale 2 puffs into the lungs 2 (two) times a day. 10.6 g 5 024 2024 Discontinued tirzepatide (MOUNJARO) 7.5 MG/0.5ML injectionIndica tions:Diabetes Mellitus Inject 7.5 mg into the skin every 7 days. Indications: Diabetes 6 mL 3 024 2024 Discontinued traZODone (DESYREL) 50 MG tabletIndicatio ns:Primary insomnia Take 1 tablet (50 mg total) by mouth nightly at bedtime. 90 tablet 1 025 2024 Discontinued valACYclovir (VALTREX) 1 g tablet Take 1 tablet (1,000 mg total) by mouth. 025 2024 Discontinued(R eorder) NON FORMULARY 2024 Discontinued Active Problems Problem Noted Date Diagnosed Date Chronic sinusitis 01/25/2025 Chronic allergic conjunctivitis 01/25/2025 Allergic rhinitis due to pollen 01/25/2025 Allergic rhinitis due to animal hair and dander 01/25/2025 Melanoma of back 01/25/2025 Moderate asthma, unspecified whether complicated, unspecified whether persistent 01/25/2025 CKD stage G2/A1, GFR 60-89 a nd albumin creatinine ratio <30 mg/g 10/05/2024 Lesion of right wainwright kidney 09/28/2024 Kidney stones 09/28/2024 Hypogammaglobulinemia 09/27/2024 Herpes zoster conjunctivitis 09/07/2024 RUQ pain 08/13/2024 HSV epithelial keratitis 05/20/2024 Iritis due to infection 05/20/2024 Pseudophakia 05/20/2024 Elevated vitamin B12 level 03/31/2024 Class 1 obesity due to exces s calories with serious comorbidity and body mass index (BMI) of 31.0 to 31.9 in adult 10/08/2023 Primary hypertension 03/31/2023 Schatzki's ring of distal esophagus 05/22/2022 History of nonmelanoma skin cancer 05/22/2022 Hypertrophy of both inferior nasal turbinates Mitral annular calcification 06/05/2021 Disorder of refraction and accommodation 017 Dysphagia, unspecified type 04/23/2016 Chronic lymphocytic leukemia of B-cell type not having achieved remission 09/11/2015 Overview (08/15/2020): Overview: 13q del, IgVH mutated and Lyons 70 negative 13q del, IgVH mutated and Lyons 70 negative Primary insomnia 08/07/2015 Type 2 diabetes mellitus with hyperglycemia 06/21 Dyslipidemia 07/20/2015 Sacroiliitis, not elsewhere classified 5 Resolved Problems Problem Noted Date Diagnosed Date Resolved Date Hypertriglyceridemia 03/31/2024 025 Deviated nasal septum 05/21/20222023 Allergic rhinitis 08/14/2020 01/25/2025 Residual foreign body in soft tissue 08/14/2020 05/21/2022 Fatigue 10/09/2018 03/20/2022 Snoring 10/09/2018 03/20/2022 Radiculopathy of lumbar region 10/18/2014 05/21/2022 Encounters Date Type Department Care Team Description 02/02/2025 Orders Only [facility] Multispecialty Care - [facility] [address] [place] [address] Violetta Person MD 02/02/2025 Results Follow-Up [facility] Multispecialty Care - [facility] [address] [place] [address] Bernice Miller NP MRI ABD WWO CON 01/30/2025 MyChart Message Enc [facility] Multispecialty Care - [facility] [address] [place] [address] Violetta Person MD MRI RESULTS 01/19/25 01/25/2025 10:20 AM CDT Office Visit [address] [address] Sukumar Evans MD Surgical Clearance (Patient presents today for a surgical clearance and 6 month FU on Diabetes. ) 01/25/2025 Travel 01/19/2025 11:39 AM CDT - 01/19/2025 11:59 PM CDT Hospital Encounter [facility] [address] [place] [address] Bernice Miller NP Discharge Disposition: Home or Self Care (Routine Discharge) 01/19/2025 Travel 01/10/2025 Telephone [facility] [address] [place] [phone] Geneva Reece MD Results 01/06/2025 7:46 AM CDT - 01/06/2025 11:59 PM CDT Hospital Encounter [facility] [address] [place] [address] Philip Monzon MD Discharge Disposition: Home or Self Care (Routine Discharge) 01/06/2025 Travel 01/03/2025 Patient Outreach [address] [address] Lynsey Guerrero MA Other ([employer] Care Gaps) 01/03/2025 Patient Outreach [address] [address] Sukumar Evans MD Error 12/31/2024 Telephone [facility] [address] [place] [address] Geneva Reece MD Orders (ECHO) 12/30/2024 2:00 PM CDT Office Visit [facility] [address] [place] [address] Geneva Reece MD Heart Problem 12/30/2024 Telephone [facility] [address] [place] [address] Geneva Reece MD Appointment Request 12/30/2024 Orders Only [facility] [address] [place] [address] Geneva Reece MD 12/30/2024 Travel 12/23/2024 E-Visit [address] [address] Sukumar Evans MD 12/17/2024 MyChart Message Enc [address] [address] Sukumar Evans MD Medication renewels 12/09/2024 MyChart Message Enc [facility] Multispecialty Care - [facility] [address] [place] [address] Violetta Person MD MRI of the ABDOMEN 11/30/2024 Orders Only [facility] [address] [place] [address] Geneva Reece MD 11/29/2024 7:56 AM CDT - 11/29/2024 11:59 PM CDT Hospital Encounter [facility] [id number] [place] [address] Violetta Person MD Discharge Disposition: Home or Self Care (Routine Discharge) 11/29/2024 Travel 11/24/2024 Travel 11/10/2024 Scan HEALTH INFO SRVCS Scanned, [facility] from Last 3 Months Immunizations Immunization Administration Dates Next Due Fluad influenza vaccine, Ruben drivalent (aIIV4), Inactivated, adjuvanted, preservative free, 0.5 mL,IM use 12/20/2019 Flucelvax 6 Months+ (Prefill ed Syringe) 02/11/2018 Fluzone High Dose - >Age 65 (Prefilled Syringe) 01/03/2016 Influenza (Generic) 12/20/2019, 9,02/12/2018,2016,01/03/2016,02/28/2015,01/18/2013,0 01/16/2012,01/21/2008,03/13/2005, 004,02/22/1998 Influenza Adult (Generic) 01/31/2023,07/2021,02/15/2021,2019,03/19/2019,02/12/2018,02/04/2017,0 01/03/2016,02/28/2015,01/18/2013, 012,01/21/2008,03/13/2005,02/21/2004, PFIZER COVID-19 (ORIGINAL FORMULATION, PURPLE CAP) mRNA, LNP-S, PF, 30 MCG/0.3 ML DOSE 01/31/2021,07/07/2020,06/15/2020 Pneumococcal (Pneumovax 23) 06/30/2018, 8 Pneumococcal (Prevnar 13) 12/25/2018,01/03/2016 Pneumococcal (Prevnar 20) 10/08/2023,04/04/2023 Shingrix 04/06/2019, 9,12/25/2018,2018 Td 08/28/1990 Td (Tenivac) preservative free 01/01/2007 Td, Adsorbed, Preservative F ree, Adult Use, Lf Unspecified 01/01/2007 Tdap (Generic) 11/20/2021,01/16/2012 Tetanus Toxoid Inj 08/28/1990 Zoster (Zostavax) 47783 Unt/0.65Ml 02/07/2014 Family History Medical History Relation Comments Alcohol Abuse Father Early life Heart Attack Father Heart Disease Father Open Heart Father Stent Cardiac Father Arthritis Mother Drug Abuse Mother Prescription Heart Disease Mother Open Heart Mother Stent Cardiac Mother Valve Disease Paternal Grandfather Heart Attack Paternal Grandmother Breast Cancer Neg Hx Relation Status Comments Brother Father Mother Paternal Grandfather Paternal Grandmother Social History Tobacco Use Types Packs/Day Years Used Date Smoking Tobacco: Never Passive Smoke Exposure: Never Smokeless Tobacco: Never Tobacco Cessation:Counseling Given: No Alcohol Use Standard Drinks/Week Comments Not Currently [...] AM CDT Legal Sex Female 8:53 AM [employer]ING [employer] Gender Identity Female 10/11/2024 9:43 AM CDT Sexual Orientation Not on file Last Filed Vital Signs Vital Sign Reading Time Taken Comments Blood Pressure 118/65 01/25/2025 10:29 AM CDT Pulse 77 01/25/2025 10:29 AM CDT Temperature 36.4 C (97.5 F) 01/25/2025 10:29 AM CDT Respiratory Rate 18 01/25/2025 10:2 9 AM CDT Oxygen Saturation 99% 01/25/2025 10: 29 AM CDT Inhaled Oxygen Concentration - - Weight 82.9 kg (182 lb 12.8 oz) 025 10:29 AM CDT Height 170.2 cm (5' 7) 01/25/2025 10:2 9 AM CDT Body Mass Index 28.63 01/25/2025 10:29 AM CDT Plan of Treatment Upcoming Encounters Date Type Department Care Team (Late st Contact Info) Description 04/27/2025 8:40 AM [employer]ING OV[employer]ENDER Office Visit [facility] Family [facility] [address] [place] [address] Sukumar Evans MD [address] [facility] [place] [address] 01/02/2026 9:15 AM CDT Office Visit [facility] [place] [phone] Geneva Reece MD [address] [place] [address] Health Maintenance Due Date Last Done Comments RSV Immunization or 60+ Years (1 - Risk 60-74 years 1-dose series) 2013 Annual Medicare Wellness Visit 2018 Diabetes: Retinopathy Eye Exam 01/06/2025 01/07/2024, 07/09/2023, 06/09/2023 Influenza Adult (#1) 2025 01/31/2023, 02/22/2022, 02/15/2021, Additional history exists Kidney Health Evaluation 03/31/2025 03/31/2024 Lipid Panel 03/31/2025 03/31/2024, 03/22, 11/12/2021, Additional history exists Colorectal Cancer Screening Colonoscopy (10 Years) 06/04/2025 06/04/2022 Hemoglobin A1C 07/26/2025 01/25/2025, 08/20, 03/09/2024, Additional history exists COVID-19 Vaccine ( season) 2026 01/31/2021, 07/07/2020, 06/15/2020 Postponed from 12/20/2024 (Patient Refused) Mammogram Screening 05/20/2026 05/20/2024, 04/29/2023, 01/16/2022, Additional history exists DTaP, Tdap and Td Vaccines (3 - Td or Tdap) 11/21/2031 11/20/2021, 01/16/2012, 01/01/2007, Additional history exists Zoster Vaccines Completed 04/06/2019, 03/21, 12/25/2018, Additional history exists Hepatitis C Completed 04/10/2023 Dexa Scan (General) Completed 08/05/2023, 01/18/2020, 01/18/2020 Pneumococcal Vaccine: 50+ Years Completed 10/08/2023, 04/04/2023, 12/25/2018, Additional history exists PHQ-2 (Physician Fowler) Completed 01/25/2025 Hepatitis A Vaccines Aged Out No long er eligible based on patient's age to complete this topic Meningococcal B Vaccine Aged Out No l onger eligible based on patient's age to complete this topic Meningococcal Vaccine Aged Out No misael tommy eligible based on patient's age to complete this topic RSV Immunizations Under 20 Months Aged Out No longer eligible based on patient's age to complete this topic Procedures Procedure Name Priority Date/Time Associated Diagnosis Comments COLLECT.CAPILLARY (FNGR,HEEL,EAR) Routine 01/25/2025 10:13 AM CDT Type 2 diabetes mellitus with hyperglycemia, with long-term current use of insulin ([facility]) HEMOGLOBIN, GLYCOSYLATED Routine 01/25/2025 Type 2 diabetes mellitus with hyperglycemia, with long-term current use of insulin ([facility]) MRI ABD WWO CON Routine 01/19/2025 1:03 PM CDT RUQ pain Nausea USE ECHOCARDIOGRAM Routine 01/06/2025 2: 51 PM CDT Dyslipidemia Primary hypertension Mitral annular calcification US RETROPERITONEAL COMP Routine 01/07/20 25 9:01 AM CDT Bilateral kidney stones ELECTROCARDIOGRAM (NON MIDMARK ACQUIRED) Routine 12/30/2024 1:44 PM CDT Dyslipidemia Primary hypertension NM HEPATOBILIARY SCAN W/GB EJECTION FRACTION Routine 11/29/2024 10:00 AM CDT RUQ pain Nausea MG SCREENING W JACKELINE MICHAEL DIGI Routine 05/20/2024 8:40 AM [employer]ING [employer] Visit for screening mammogram LIPID PANEL Routine 03/31/2024 7:59 AM [employer]ING [employer]ER Dyslipidemia DIABETIC RETINOPATHY EXAM (POSITIVE)(SCAN ORDER) Routine 01/07/2024 BONE DENSITY/DEXA Routine 08/05/2023 1:1 9 PM CDT Postmenopausal HEPATITIS C ANTIBODY Routine 04/10/2023 8:39 AM [employer]ING [employer]ER Need for hepatitis C screening test COLONOSCOPY GENERIC (SCAN ORDER) Routine 06/04/2022 from Last 3 Months or Most Recently Relevant to Health Maintenance Results * HEMOGLOBIN, GLYCOSYLATED (01/25/2025) HGB A1C 5.8 % JANET BOYDLOH 01/25/2025 Sukumar Evans MD LABORATORY Final Result [facility]ORD[facility]YD [address] [place] [address], * MRI ABD WWO CON (01/19/2025 1:03 PM CDT) Anatomical Region Laterality Modality Abdomen Magnetic Resonan ce 01/30/2025 3:43 PM CDT Impressions 01/30/2025 3:48 PM CDT IMPRESSION: 1. APPARENT FAILED/EXTRAVASATED ATTEMPT AT INTRAVENOUS CONTRAST ADMINISTRATION. THIS IS AN ESSENTIALLY NONCONTRAST STUDY A RESULT. 2. NO SIGNIFICANT ABNORMALITY IS DEMONSTRATED. Signed: Wilfrido Nair MD Referred By: BERNICE MILLER Interpreted By: Wilfrido Nair MD, 01/30/2025 3:43 PM Narrative 01/30/2025 3:48 PM CDT [facility] [address] [facility] [place] [address] PATIENT NAME: JACKIE HOUSTON EXAM: MRI abdomen with and without contrast DATE OF EXAM: 01/19/2025 COMPARISON EXAM: CT 2020, 03/22/2019 INDICATION: History of chronic lymphocytic leukemia. Right upper quadrant pain TECHNIQUE: Multiplanar/multisequence MRI abdomen performed before and after intravenous injection of 14 mL MultiHance gadolinium contrast. Postcontrast electronic subtraction images. The technologist notes that the patient apparently had some type of panic attack at the time of injection and there was a question of the contrast injection failing/extravasating. FINDINGS: The images obtained post contrast injection demonstrate no significant structural enhancement consistent with this having been an extravasated failed injection. The liver is normal in size. No significant focal intrahepatic lesions are demonstrated. No evidence of cholelithiasis or gallbladder wall thickening. No biliary duct dilatation. The spleen is normal in size and normal in appearance. The pancreas and the adrenal glands are unremarkable. The kidneys demonstrate no acute perirenal inflammatory stranding or fluid. There is no hydronephrosis. There is an approximately 3.2 cm in diameter benign-appearing parapelvic cyst on the right. No evidence of significant solid renal mass lesion. There is no evidence of significant lymphadenopathy. No acute inflammatory change, abscess or ascites. Abdominal aorta and IVC are unremarkable. Procedure Note Wilfrido Nair MD - 01/30/2025 [facility] [address] [place] [id number] PATIENT NAME: JACKIE HOUSTON EXAM: MRI abdomen with and without contrast DATE OF EXAM: 01/19/2025 COMPARISON EXAM: CT 2020, 03/22/2019 INDICATION: History of chronic lymphocytic leukemia. Right upper quadrantpain TECHNIQUE: Multiplanar/multisequence MRI abdomen performed before andafter intravenous injection of 14 mL MultiHance gadolinium contrast.Postcontrast electronic subtraction images. The technologist notes thatthe patient apparently had some type of panic attack at the time ofinjection and there was a question of the contrast injectionfailing/extravasating. FINDINGS: The images obtained post contrast injection demonstrate nosignificant structural enhancement consistent with this having been anextravasated failed injection. The liver is normal in size. No significant focal intrahepatic lesionsare demonstrated. No evidence of cholelithiasis or gallbladder wallthickening. No biliary duct dilatation. The spleen is normal in size and normal in appearance. The pancreas andthe adrenal glands are unremarkable. The kidneys demonstrate no acute perirenal inflammatory stranding orfluid. There is no hydronephrosis. There is an approximately 3.2 cm indiameter benign-appearing parapelvic cyst on the right. No evidence ofsignificant solid renal mass lesion. There is no evidence of significant lymphadenopathy. No acuteinflammatory change, abscess or ascites. Abdominal aorta and IVC areunremarkable. IMPRESSION: 1. APPARENT FAILED/EXTRAVASATED ATTEMPT AT INTRAVENOUS CONTRASTADMINISTRATION. THIS IS AN ESSENTIALLY NONCONTRAST STUDY A RESULT. 2. NO SIGNIFICANT ABNORMALITY IS DEMONSTRATED. Signed: Wilfrido Nair MD Referred By: BERNICE MILLER Interpreted By: Wilfrido Nair MD, 01/30/2025 3:43 PM us Bernice Miller NP MRI Final Resul t * USE ECHOCARDIOGRAM (01/06/2025 2:51 PM CDT) Anatomical Region Laterality Modality Cardiac Ultrasound 01/06/2025 2:00 PM CDT Narrative 01/07/2025 2:22 PM CDT CINDY ADORE Pat.Name: Celso Jackielawrence hair Pat.ID: [id number] .Date: 01/06/2025 Refer.MD: Adore, [facility] Radiology Exam Time: 2:00:00 PM Study Type:[facility] Height: 67 in Weight: 180 lb BSA: 1.93 m2 Age: 2 1955,69Y Sex: F Sonogrphr: Yonny Pat. Stat.:Outpatient Reason for Study:Murmur Procedures: 2D, M-mode, Doppler, Color Flow, Study performed at [place], [place] and interpreted by [facility]. ++++++++++++++++++++++++++++++++++++ SUMMARY: ++++++++++++++++++++++++++++++++++++ The left ventricular size is normal. The left ventricular systolic function is normal. Estimated left ventricular ejection fraction is 60-65%. Mild concentric left ventricular hypertrophy. Left ventricular diastolic function is abnormal (grade 2 - pseudonormal pattern). The right ventricle size is normal. The right ventricular function is normal. The left atrial size is moderately enlarged. Mild aortic valve stenosis. The peak velocity across the aortic valve measures 2.4m/sec with a peak gradient of 22mmHg and a mean gradient of 12mmHg. The calculated aortic valve area is 1.7cm2. Dimensionless index of .58. Mild mitral regurgitation. Moderate mitral valve stenosis. Heavily calcified posterior mitral annulus. The mean gradient across the mitral valve is 7 at a heart rate of 81. ++++++++++++++++++++++++++++++++++++ FINDINGS: ++++++++++++++++++++++++++++++++++++ LV: The left ventricular size is normal. The left ventricular systolic function is normal. Estimated left ventricular ejection fraction is 60-65%. Mild concentric left ventricular hypertrophy. Left ventricular diastolic function is abnormal (grade 2 - pseudonormal pattern). WM: Wall motion appears normal in all segments. RV: The right ventricle size is normal. The right ventricular function is normal. LA: The left atrial size is moderately enlarged. The left atrial volume is moderately increased (42-48 ml/M2). RA: Right atrial size is normal. NAVID: No evidence of pericardial effusion. AO: Normal aortic root. PA: No evidence of pulmonary hypertension. SVn: Inferior vena cava shows >50% collapse with respiration consistent with normal right atrial pressure. AV: The aortic valve is trileaflet. Mild aortic valve stenosis. The peak velocity across the aortic valve measures 2.4m/sec with a peak gradient of 22mmHg and a mean gradient of 12mmHg. The calculated aortic valve area is 1.7cm2. No evidence of aortic regurgitation. Mild aortic valve sclerosis. Dimensionless index of .58. MV: Mild mitral regurgitation. Moderate mitral valve stenosis. Heavily calcified posterior mitral annulus. Posterior mitral valve calcification with poor leaflet pliability. The mean gradient across the mitral valve is 7 at a heart rate of 81. PV: Trace pulmonic regurgitation. Pulmonic valve not well visualized. TV: Structurally normal tricuspid valve. A trace of tricuspid regurgitation. <Electronic Signature> 01/07/2025 02:22 PM Brandt Jensen M.D. Procedure Note Md, Generic Conversion, - 01/07/2025 CINDY AVITIA Pat.Name: Jackie Houston Pat.ID: [id number] .Date: 01/06/2025 Refer.: Adore, [facility] Radiology Exam Time: 2:00:00 PM Study Type:OUTREACH Height: 67 in Weight: 180 lb BSA: 1.93 m2 Age: 2 1955,69Y Sex: F Sonogrphr: Ls Pat. Stat.:Outpatient Reason for Study:Murmur Procedures: 2D, M-mode, Doppler, Color Flow, Study performed at [place], [place] and interpreted by [facility]. ++++++++++++++++++++++++++++++++++++ SUMMARY: ++++++++++++++++++++++++++++++++++++ The left ventricular size is normal. The left ventricular systolic function is normal. Estimated left ventricular ejection fraction is 60-65%. Mild concentric left ventricular hypertrophy. Left ventricular diastolic function is abnormal (grade 2 - pseudonormal pattern). The right ventricle size is normal. The right ventricular function is normal. The left atrial size is moderately enlarged. Mild aortic valve stenosis. The peak velocity across the aortic valve measures 2.4m/sec with a peak gradient of 22mmHg and a mean gradient of 12mmHg. The calculated aortic valve area is 1.7cm2. Dimensionless index of .58. Mild mitral regurgitation. Moderate mitral valve stenosis. Heavily calcified posterior mitral annulus. The mean gradient across the mitral valve is 7 at a heart rate of 81. ++++++++++++++++++++++++++++++++++++ FINDINGS: ++++++++++++++++++++++++++++++++++++ LV: The left ventricular size is normal. The left ventricular systolic function is normal. Estimated left ventricular ejection fraction is 60-65%. Mild concentric left ventricular hypertrophy. Left ventricular diastolic function is abnormal (grade 2 - pseudonormal pattern). WM: Wall motion appears normal in all segments. RV: The right ventricle size is normal. The right ventricular function is normal. LA: The left atrial size is moderately enlarged. The left atrial volume is moderately increased (42-48 ml/M2). RA: Right atrial size is normal. NAVID: No evidence of pericardial effusion. AO: Normal aortic root. PA: No evidence of pulmonary hypertension. SVn: Inferior vena cava shows >50% collapse with respiration consistent with normal right atrial pressure. AV: The aortic valve is trileaflet. Mild aortic valve stenosis. The peak velocity across the aortic valve measures 2.4m/sec with a peak gradient of 22mmHg and a mean gradient of 12mmHg. The calculated aortic valve area is 1.7cm2. No evidence of aortic regurgitation. Mild aortic valve sclerosis. Dimensionless index of .58. MV: Mild mitral regurgitation. Moderate mitral valve stenosis. Heavily calcified posterior mitral annulus. Posterior mitral valve calcification with poor leaflet pliability. The mean gradient across the mitral valve is 7 at a heart rate of 81. PV: Trace pulmonic regurgitation. Pulmonic valve not well visualized. TV: Structurally normal tricuspid valve. A trace of tricuspid regurgitation. <Electronic Signature> 01/07/2025 02:22 PM Brandt Jensen M.D. us Geneva Reece MD ECHO Final Result * US RETROPERITONEAL COMP (01/06/2025 9:01 AM CDT) Anatomical Region Laterality Modality Abdomen Ultrasound 01/06/2025 9:25 AM CDT Impressions 01/06/2025 3:10 PM CDT IMPRESSION: 1. Bilateral nonobstructing nephrolithiasis. 2. No obstructing urolithiasis or hydronephrosis. 3. Normal sonographic appearance of the urinary bladder. 4. Benign-appearing right renal cyst which requires no further workup or follow- up. Dictated By: Isreal Prather MD on 01/06/2025 9:25 AM The attending radiologist has reviewed the image(s) and agrees with the content of this report. Ordered By: PHILIP MONZON Interpreted By: Isreal Prather MD, 01/06/2025 9:25 AM Narrative 01/06/2025 3:10 PM CDT [address] [place] [address] EXAMINATION: US RETROPERITONEAL COMP HISTORY: Nephrolithiasis. COMPARISON: Ultrasound 11/03/2024. CT 2020. TECHNIQUE: Grayscale and color Doppler images of the kidneys and urinary bladder were obtained. FINDINGS: The right kidney measures 11.3 cm in length. Mild renal cortical thinning and increased parenchymal echogenicity as can be seen in senescent changes and/or chronic kidney disease. There is a 4.4 cm simple benign cyst at the inferior pole. There is a 1.1 x 0.9 x 0.6 cm calcification at the inferior pole. No right hydronephrosis or solid mass. The left kidney measures 12.1 cm in length. Mild renal cortical thinning and increased parenchymal echogenicity. No solid renal mass, cyst, or hydronephrosis. 0.5 cm calcification at the superior pole. Urinary bladder is not fully distended therefore suboptimally evaluated, however appears grossly unremarkable. Bilateral ureteral jets are seen. Procedure Note Nathan Pan MD - 01/06/[address] [place] [address] EXAMINATION: US RETROPERITONEAL COMP HISTORY: Nephrolithiasis. COMPARISON: Ultrasound 11/03/2024. CT 2020. TECHNIQUE: Grayscale and color Doppler images of the kidneys and urinarybladder were obtained. FINDINGS: The right kidney measures 11.3 cm in length. Mild renal cortical thinningand increased parenchymal echogenicity as can be seen in senescent changesand/or chronic kidney disease. There is a 4.4 cm simple benign cyst at theinferior pole. There is a 1.1 x 0.9 x 0.6 cm calcification at the inferiorpole. No right hydronephrosis or solid mass. The left kidney measures 12.1 cm in length. Mild renal cortical thinningand increased parenchymal echogenicity. No solid renal mass, cyst, orhydronephrosis. 0.5 cm calcification at the superior pole. Urinary bladder is not fully distended therefore suboptimally evaluated,however appears grossly unremarkable. Bilateral ureteral jets are seen. IMPRESSION: 1. Bilateral nonobstructing nephrolithiasis. 2. No obstructing urolithiasis or hydronephrosis. 3. Normal sonographic appearance of the urinary bladder. 4. Benign-appearing right renal cyst which requires no further workup orfollow- up. Dictated By: Isreal Prather MD on 01/06/2025 9:25 AM The attending radiologist has reviewed the image(s) and agrees with thecontent of this report. Ordered By: PHILIP MONZON Interpreted By: Isrela Prather MD, 01/06/2025 9:25 AM us Philip Monzon MD ULTRASOUND Final Result * ELECTROCARDIOGRAM (12/30/2024 1:44 PM CDT) 12/30/2024 1:44 PM CDT Narrative [facility] - 12/30/2024 6:55 PM CDT [facility] [address] [place] [address] Test Date: 2024-12-30 Pat Name: JACKIEТатьяна HOUSTON Department: 105 Room: Gender: Female Billet Header: : 1955 Requested By: GENEVA REECE Order Number: [id number] Reading MD: Geneva Reece Measurements Intervals [place] Rate: 80 P: 61 MO: 161 QRS: 76 QRSD: 93 T: 74 QT: 374 QTc: 432 Interpretive Statements SINUS RHYTHM Procedure Note Geneva Reece MD - 12/30/2024 [facility] [address] [place] [address] Test Date: 2024-12-30 Pat Name: JACKIE HOUSTON Department: 105 Room: Gender: Female Billet Header: : 1955 Requested By: GENEVA REECE Order Number: [id number] Reading MD: Geneva Reece Measurements Intervals [place] Rate: 80 P: 61 MO: 161 QRS: 76 QRSD: 93 T: 74 QT: 374 QTc: 432 Interpretive Statements SINUS RHYTHM Geneva Reece MD PROCEDURES-ORDERABLE NO CHARGE F inal Result [facility] * NM HEPATOBILIARY SCAN W/GB EJECTION FRACTION (11/29/2024 10:00 AM CDT) Anatomical Region Laterality Modality Abdomen Nuclear Medicine 11/29/2024 10:0 9 AM CDT Impressions 11/29/2024 10:18 AM CDT IMPRESSION: 1. Normal hepatobiliary scintigraphy with normal gallbladder ejection fraction. 2. Patient experienced typical right upper quadrant abdominal pain and back pain with intravenous administration of CCK, suggesting biliary colic despite normal gallbladder ejection fraction. Ordered By: VIOLETTA PERSON Interpreted By: Nathan Hope MD, 11/29/2024 10:09 AM Narrative 11/29/2024 10:18 AM CDT [facility] [address] [facility]. [place] [id number] EXAMINATION: NM HEPATOBILIARY SCAN W/GB EJECTION FRACTION HISTORY: Reason for examination (per EHR order): ruq pain. Additional clinical information obtained from the EHR: 69 years Female with right upper quadrant pain. RADIOPHARMACEUTICAL: 5.6 mCi Tc-99m mebrofenin via intravenous injection. 1.6 mcg CCK infused over 30 minutes. TECHNIQUE: Dynamic and static frontal images. COMPARISON: Correlation is made with right upper quadrant ultrasound 11/03/2024. FINDINGS: Prompt uniform uptake of radiotracer by the liver with normal excretion into the biliary tree and filling of the gallbladder by 30 minutes. There is normal passage of radiotracer throughout the bowel. After intravenous administration of CCK, there is a normal gallbladder ejection fraction of 42%. Of note, patient experienced upper abdominal cramping and back pain with intravenous administration of CCK, which is reportedly similar to presenting symptoms. Procedure Note Nathan Hope MD - 11/29/2024 [facility] [address] [place] [address] EXAMINATION: NM HEPATOBILIARY SCAN W/GB EJECTION FRACTION HISTORY: Reason for examination (per EHR order): ruq pain. Additional clinical information obtained from the EHR: 69 years Femalewith right upper quadrant pain. RADIOPHARMACEUTICAL: 5.6 mCi Tc-99m mebrofenin via intravenous injection.1.6 mcg CCK infused over 30 minutes. TECHNIQUE: Dynamic and static frontal images. COMPARISON: Correlation is made with right upper quadrant ultrasound11/03/2024. FINDINGS: Prompt uniform uptake of radiotracer by the liver with normal excretioninto the biliary tree and filling of the gallbladder by 30 minutes. Thereis normal passage of radiotracer throughout the bowel. After intravenous administration of CCK, there is a normal gallbladderejection fraction of 42%. Of note, patient experienced upper abdominal cramping and back pain withintravenous administration of CCK, which is reportedly similar topresenting symptoms. IMPRESSION: 1. Normal hepatobiliary scintigraphy with normal gallbladder ejectionfraction. 2. Patient experienced typical right upper quadrant abdominal pain andback pain with intravenous administration of CCK, suggesting biliary colicdespite normal gallbladder ejection fraction. Ordered By: VIOLETTA PERSON Interpreted By: Nathan Hope MD, 11/29/2024 10:09 AM us Violetta Person MD [facility] MED Final Result * MG SCREENING W JACKELINE MICHAEL DIGI (05/20/2024 8:40 AM [employer]) Anatomical Region Laterality Modality Breast Bilateral Mammography 05/20/2024 4:33 PM [employer] Impressions 05/20/2024 4:37 PM [employer] ===== IMPRESSION: ===== 1. Stable mammographic appearance with no new findings to suggest malignancy in either breast. Assessment: ACR BI-RADS 2 - BENIGN FINDING(S) Recommendation: 1:Routine Screening Bilateral Comments: Ordered By: SUKUMAR EVANS Interpreted By: Rossy Doe, 05/20/2024 4:33 PM Narrative 05/20/2024 4:37 PM [employer] [facility] [address] [place] [address] EXAMINATION: Digital bilateral screening mammogram with 3-D tomosynthesis EXAM DATE/TIME: 05/20/2024 7:57 AM REASON FOR EXAM: screening COMPARISON: 01/07/2022. 04/29/2023 Technique: Digital screening mammography of both breasts was performed in addition to 3-D Tomosynthesis technique. This study was read with the assistance of a computer-aided detection system. Tissue density: There are scattered areas of fibroglandular density. Findings: There is no new focal asymmetry, dominant mass lesion, area of skin thickening, or cluster of suspicious appearing calcifications in either breast to suggest malignancy. Sukumar Evans MD MAMMO Final Result * (ABNORMAL) LIPID PANEL (03/31/2024 7:59 AM [employer]) CHOLESTEROL 144 <200.0 MG/DL 03/31/2024 8:41 AM [facility] TRIGLYCERIDES 172(H) <150 MG/DL 03/31/2024 8:41 AM [facility] HDL 41 >40.0 MG/DL 03/31/2024 8:41 AM [facility] LDL (CALCULATED) 69 <100 MG/DL 03/31/2024 8:41 AM [facility] NON HDL CHOLESTEROL 103 <130 MG/DL 03/31/2024 8:41 AM [facility] CHOL/HDL RATIO 3.5 0.0 - 4.5 03/31/2024 8:41 AM [facility] VLDL CALCULATION 34 5 - 55 MG/DL 03/31/2024 8:41 AM [employer] [facility] LIPID INTERPRETATION 03/31/2024 8:41 AM [employer] [facility] Comment: [facility] CONCENSUS REPORT RECOMMENDATIONS: ADULT CHILD LOW RISK: CHOLESTEROL <200 <170 TRIGLYCERIDE <150 --- HDL >=60 --- LDL <100 <110 BORDERLINE: CHOLESTEROL 200-239 170-199 TRIGLYCERIDE 150-199 --- HDL 40-59 --- LDL 100-159 110-129 HIGH RISK: CHOLESTEROL >=240 >=200 TRIGLYCERIDE >=200 --- HDL <40 --- LDL >=160 >=130 03/31/2024 7:59 AM [employer] Sukumar Evans MD LABORATORY Final Result Performing Organization Address [facility]/ZIP Co de Phone Number [facility] [address] [place] [address], [place] [phone] * DIABETIC RETINOPATHY EXAM (POSITIVE) (01/07/2024) [facility] Scanned SCANNING Final Resu lt Performing Organization Address [facility] Co de Phone Number [facility] * BONE DENSITY/DEXA (08/05/2023 1:19 PM CDT) Anatomical Region Laterality Modality Bone Bone Density 08/06/2023 5:52 AM CDT Impressions 08/06/2023 5:53 AM CDT IMPRESSION: WHO Classification: normal. FRAX: No score calculated as all T scores are within normal limits.. Referred By: MARTINEZ SENSINTAFFAR Interpreted By: Juan Daniel Esposito MD, 08/06/2023 5:52 AM Narrative 08/06/2023 5:53 AM CDT Examination: Bone Density Axial Exam Date/Time: 08/05/2023 1:02 PM Reason For Exam: Postmenopausal Findings: DEXA bone densitometry The bone mineral density (BMD) was determined by dual-energy x-ray absorptiometry, the results are as follows: AP Lumbar Spine L1 through L4 BMD Patient (GM/SQCM): 1.208 T-Score (Standard deviations from young adult peak bone density): 1.5 Left femoral neck: BMD Patient (GM/SQCM): 0.761 T-Score (Standard deviations from young adult peak bone density): -0.8 Total Left femur: BMD Patient (GM/SQCM): 0.966 T-Score (Standard deviations from young adult peak bone density): 0.2 Recommendations: All patients should ensure an adequate intake of dietary calcium and vitamin D. The NOF recommend adults under the age of 50 need 1000 mg of calcium and 400-800 IU of vitamin D daily. Effective therapy for the prevention and treatment of osteoporosis include biphosphonates. Follow-up: People with diagnosed cases of osteoporosis or at high risk for fracture should have regular bone mineral density test. For patients eligible for Medicare, routine testing is allowed once every 2 years. Testing frequency can be increased to one year for patients who have rapidly progressing disease, those who are receiving or discontinuing medical therapy to restore bone mass, or have additional risk factors. Procedure Note Juan Daniel Esposito MD - 08/06/2023 Examination: Bone Density Axial Exam Date/Time: 08/05/2023 1:02 PM Reason For Exam: Postmenopausal Findings: DEXA bone densitometry The bone mineral density (BMD) was determined bydual-energy x-ray absorptiometry, the results are as follows: AP Lumbar Spine L1 through L4 BMD Patient (GM/SQCM): 1.208 T-Score (Standard deviations from young adult peak bonedensity): 1.5 Left femoral neck: BMD Patient (GM/SQCM): 0.761 T-Score (Standard deviations from young adult peak bonedensity): -0.8 Total Left femur: BMD Patient (GM/SQCM): 0.966 T-Score (Standard deviations from young adult peak bonedensity): 0.2 Recommendations: All patients should ensure an adequate intake of dietary calcium andvitamin D. The NOF recommend adults under the age of 50 need 1000 mg ofcalcium and 400-800 IU of vitamin D daily. Effective therapy for theprevention and treatment of osteoporosis include biphosphonates. Follow-up: People with diagnosed cases of osteoporosis or at high risk for fractureshould have regular bone mineral density test. For patients eligible forMedicare, routine testing is allowed once every 2 years. Testing frequencycan be increased to one year for patients who have rapidly progressingdisease, those who are receiving or discontinuing medical therapy torestore bone mass, or have additional risk factors. IMPRESSION: WHO Classification: normal. FRAX: No score calculated as all T scores are within normal limits.. Referred By: MARTINEZ ALONSO Interpreted By: Juan Daniel Esposito MD, 08/06/2023 5:52 AM Martinez Alonso MD DEXA Final Res ult * HEPATITIS C ANTIBODY (04/10/2023 8:39 AM [employer]) HEPATITIS C AB NON-REACTI VE NON-REACTI VE 04/10/2023 3:33 PM [employer] [facility] 04/10/2023 8:39 AM [employer] Martinez Alonso MD LABORATORY Final Res ult [facility] [address] [place] [address], * COLONOSCOPY (06/04/2022) [facility] Scanned SCANNING Final Resu lt [facility] from Last 3 Months or Most Recently Relevant to Health Maintenance Insurance [employer] MEDICARE Care Teams Weight Count Operator Relationship Specialty Start Date End Date Sukumar Evans MD [address] [place] [phone] PCP - General FAMILY PRACTICE 03/09/24 Teressa Collazo, [facility] Nurse Practitioner Nurse Practitioner Family 01/24/22 Nadeen Wall MD [address] [place] [phone] [employer] CLINICAL CARDIAC ELECTROPHYSIOLOGY 10/04/24 Geneva Reece MD [address] [place] [address] [employer] CARDIOVASCULAR DISEASE 10/04/24
--- OUTSIDE RECORDS SUMMARY | 2025-02-08 15:28 | XMS_ITS ---
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 Past Treatment and Therapy Plans ONCOLOGY ADJUNCTIVE CARE Plan Name Start Date Discontinue Date Treatment Medications Discontinue Reason Plan Provider Cycles SUPPORT (IMMUNE GLOBULIN 10%) (IVIG) 4 09/09/2024 No medications scheduled. Therapy Complete Elise Tabor MD 7 of 15 cycles started Lifetime Dose Tracking * Chemical Lifetime Dose Automatic Entry Manual Entr y Dose Length Product 3,972 mGy-cm 3,972 mGy-cm 0 mGy-cm
--- OUTSIDE RECORDS SUMMARY | 2025-02-08 15:28 | XMS_ITS | Clinical Summary ---
Author Organization [facility] Address [address] [place] [address] Phone Care Team Providers Care Chopper Operator Name Role Phone Josephine Pagan MD Primary Care Provider [phone] Allergies Active Allergy Reactions Criticality Noted Date Comments Bacitracin Other (see Comments),Swelling,Un known High 09/06/2019 reddness and tearing Other reaction(s): Eyes Water & Itch reddness and tearing reddness and tearing Other reaction(s): Eyes Water & Itch reddness and tearing Codeine Other (see Comments) 04/23/2019 dizzy Iodine Rash 04/23/2019 Morphine Vomiting 04/23/2019 Hydrocodone-Acetaminop hen Unknown 04/23/2019 Tramadol Vomiting 04/23/2019 Medications atorvastatin (LIPITOR) 20 MG Tablet Take 20 mg by mouth daily. Active albuterol 108 (90 Base) MCG/ACT Aerosol Solution take 2 Puffs by inhalation every 4 hours as needed. Active Vitamin D3 1000 UNIT Tablet Take 1,000 Units by mouth daily. Active cyanocobalamin 1000 MCG Tablet Take 1,000 mcg by mouth daily. Active fluticasone (FLOVENT HFA) 110 MCG/ACT Aerosol take 2 Puffs by inhalation. 02/05/20 17 Active insulin glargine (Lantus SoloStar) 100 UNIT/ML Solution Pen-injector 24 Units by Subcutaneous route. 01/19/20 Active ipratropium (ATROVENT) 0.03 % Solution SPRAY 2 SPRAYS INTO EACH NOSTRIL TWICE A DAY 05/09/19 24 Active ketoconazole (NIZORAL) 2 % Cream APPLY TO FOOT TWICE A DAY 12/20/19 23 Active lisinopril (PRINIVIL, ZESTRIL) 10 MG Tablet Take 10 mg by mouth daily. 03/22/20 24 Active minoxidil (LONITEN) 2.5 MG Tablet Take 2.5 mg by mouth daily. Active aspirin EC 81 MG Tablet Delayed Response Take 81 mg by mouth daily. Active metFORMIN (GLUCOPHAGE-XR ) 750 MG TABLET SR 24 HR TAKE 2 TABLETS (1,500 MG TOTAL) BY MOUTH EVERY DAY WITH BREAKFAST 04/27/19 25 Active [place]-3 Fatty Acids (Fish Oil) 500 MG Capsule Take 500 mg by mouth daily. Active moxifloxacin (VIGAMOX) 0.5 % Solution 1 Drop. 05/19/19 25 Active Mounjaro 7.5 MG/0.5ML Solution Auto-injector INJECT 1 SYRINGE SUBCUTANEOUSLY ONCE A WEEK FOR DIABETES Active valACYclovir (VALTREX) 1 GM Tablet Take 1 Tablet by mouth 2 times daily. 60 Tablet 6 11/05/19 25 Active triamcinolone (KENALOG) 0.1 % Cream APPLY CREAM EXTERNALLY TWICE DAILY TO AFFECTED AREA FOR 14 DAYS 12/24/19 25 Active azelastine (ASTELIN) 0.1 % Solution 2 Sprays by Nasal route as needed. Use in each nostril as directed Discontin ued(Med List Clean Up) fluticasone (FLONASE) 50 MCG/ACT Suspension 1-2 Sprays by Nasal route 2 times daily. Use in each nostril as directed. Discontin ued(Med List Clean Up) LORazepam (ATIVAN) 1 MG Tablet Take 1 mg by mouth as needed. Discontin ued(Med List Clean Up) insulin detemir (LEVEMIR) 100 UNIT/ML Solution 45 Units by Subcutaneous route nightly. 1/2 dose night before surgery Discontin ued(Med List Clean Up) montelukast (SINGULAIR) 10 MG Tablet Take 10 mg by mouth every evening. 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 CLL (chronic lymphocytic leukemia) 09/23/2024 Encounters Date Type Department Care Team Description 01/13/2025 10:15 AM CDT Clinical Support [facility] [id number] [place] [phone] CLL (chronic lymphocytic leukemia) (HCC) (Primary Dx); Hypogammaglobulinemia (HCC) 01/13/2025 10:00 AM CDT Office Visit [facility] [id number] [place] [phone] Coral Felton APRN, LASER ENGINEER Hypogammaglobulinemia (HCC) (Primary Dx); CLL (chronic lymphocytic leukemia) (HCC) 01/13/2025 Travel 12/09/2024 Telephone [facility] [address] [phone] Jose Alfredo Burciaga MD 12/02/2024 10:15 AM CDT Clinical Support [facility] [address] [phone] Hypogammaglobulinemia (HCC) (Primary Dx); CLL (chronic lymphocytic leukemia) (HCC) 12/02/2024 10:00 AM CDT Office Visit [facility] [address] [phone] Coral Felton APRN, LASER ENGINEER CLL (chronic lymphocytic leukemia) (HCC) (Primary Dx); Hypogammaglobulinemia (HCC) 12/02/2024 Travel from Last 3 Months Immunizations Immunization Administration Dates Next Due IMM GLOB HUMAN IV 01/13/2025,12/02/2024,11/05/19,10/07/2024 Family History Relation Name Status Comments Father Mother Sister Alive Social History Tobacco Use Types Packs/Day Years Used Date Smoking Tobacco: Never Smokeless Tobacco: Never Tobacco Cessation:Counseling Given: Not Answered Alcohol Use Standard Drinks/Week Comments Never 0 (1 standard drink = 0.6 oz pur e alcohol) AUDIT-C Answer Date Recorded Frequency of Alcohol Consumption Never 04/23/2019 Average Number of Drinks Not on file 020 Frequency of Binge Drinking Not on file 06/2019 Comments Unknown Sex and Gender Information Value Date Recorded Sex Assigned at Not on file Legal Sex Female 12:01 PM HOME CARE GIVER Gender Identity Not on file Sexual Orientation Not on file Last Filed Vital Signs Vital Sign Reading Time Taken Comments Blood Pressure 118/66 01/13/2025 10:11 AM CDT Pulse 79 01/13/2025 10:11 AM CDT Temperature 36.9 C (98.4 F) 01/13/2025 10:11 AM CDT Respiratory Rate 16 01/13/2025 10:11 AM CDT Oxygen Saturation 99% 01/13/2025 10:11 AM CDT Inhaled Oxygen Concentration - - Weight 80.7 kg (178 lb) 01/13/2025 10:11 AM CDT Height 170.2 cm (5' 7) 01/13/2025 10:11 AM CDT Body Mass Index 27.88 01/13/2025 10:11 AM CDT Plan of Treatment Upcoming Encounters Date Type Department Care Team (Late st Contact Info) Description 02/24/2025 10:15 AM HOME CARE GIVER Clinical Support [facility] [id number] [facility] [address] [phone] 02/24/2025 10:30 AM HOME CARE GIVER Office Visit [facility] [address] [phone] Jose Alfredo Burciaga MD [address] [place] [phone] Health Maintenance Due Date Last Done Comments Cologuard 1998 Immunochemical Fecal Occult Blood 1998 Medicare Initial AWV [id number] 04/20/2020 Influenza Immunization (#1) 12/20/202401/19, 02/22/2022, 02/15/2021, Additional history exists SARS-COV-2 Immunization ( season) 2024 01/31/2021, 07/07/2020, 06/15/2020 Mammogram 05/20/2025 05/20/2024, 04/23, 04/29/2023, Additional history exists DEXA Bone Density 08/04/2025 08/05/2023, , 01/23/2011 Colonoscopy 06/04/2032 06/04/2022 Colorectal Cancer Screening 06/04/2032 Zoster Immunization Completed 04/06/2019, 12/25/2018, 02/07/2014 TdaP Immunization Completed 11/20/2021, 01/16/2012 Respiratory Syncytial Virus (RSV) Immunization (Adult) Completed 04/04/2023 Hepatitis C Virus (HCV) Screening Completed 04/10/2023 Pneumococcal Immunization (50+ years) Completed 10/08/2023, 04/04/2023, 12/25/2018, Additional history exists Hepatitis B Immunization Aged Out No longer eligible based on patient's age to complete this topic Human Papillomavirus (HPV) Immunization Aged Out No longer eligible based on patient's age to complete this topic Meningococcal Immunization (ACWY) Aged Out No longer eligible based on patient's age to complete this topic Rotavirus Immunization Aged Out No lo nger eligible based on patient's age to complete this topic Procedures Procedure Name Priority Date/Time Associated Diagnosis Comments COMPLETE BLOOD COUNT (CBC) WITH DIFF Routine 12/02/2024 11:41 AM CDT CLL (chronic lymphocytic leukemia) (HCC) Hypogammaglobulinem ia (HCC) CMP (COMPREHENSIVE METABOLIC PANEL) Routine 12/02/2024 11:41 AM CDT CLL (chronic lymphocytic leukemia) (HCC) Hypogammaglobulinem ia (HCC) LACTATE DEHYDROGENASE (LD) Routine 12/02/2024 11:41 AM CDT CLL (chronic lymphocytic leukemia) (HCC) Hypogammaglobulinem ia (HCC) IMMUNOGLOBULIN IGA, IGG & IGM QUANT Routine 12/02/2024 11:41 AM CDT CLL (chronic lymphocytic leukemia) (HCC) Hypogammaglobulinem ia (HCC) from Last 3 Months Results * (ABNORMAL) LACTATE DEHYDROGENASE (LD) (12/02/2024 11:41 AM CDT) LDH 112(L) 140 - 271 U/L [facility] Blood 12/02/2024 11:4 1 AM CDT [facility] - 12/02/2024 3:49 PM CDT Release to patient->Immediate Coral Felton TURBINE TECHNICIAN, LASER ENGINEER CHEMISTRY ORDERABLES Final Result Performing Organization Address [facility]/ZIP Co de Phone Number [facility] [place] [address], [place] [phone] * (ABNORMAL) IMMUNOGLOBULIN IGA, IGG & IGM QUANT (12/02/2024 11:41 AM CDT) IGG 879 635 - 1,741 mg/dL [facility] IGA 96 66 - 433 mg/dL [facility] IGM 35(L) 45 - 281 mg/dL [facility] Blood 12/02/2024 11:4 1 AM CDT [facility] - 12/03/2024 2:03 PM CDT Release to patient->Immediate Coral Felton APRN, LASER ENGINEER CHEMISTRY ORDERABLES Final Result Performing Organization Address [facility] Co de Phone Number [facility] Cancer Care [address] [address], [place] [phone] * (ABNORMAL) CMP (COMPREHENSIVE METABOLIC PANEL) (12/02/2024 11:41 AM CDT) Glucose 133(H) 70 - 105 mg/dL [facility] Blood Urea Nitrogen 18 7 - 25 mg/dL [facility] Creatinine 1.0 0.6 - 1.2 mg/dL [facility] Sodium 137 136 - 145 mEq/L [facility] Potassium 4.8 3.5 - 5.1 mEq/L [facility] Chloride 101 98 - 107 mEq/L [facility] Bicarbonate 26 21 - 31 mEq/L [facility] Total Bilirubin 0.5 0.3 - 1.0 mg/dL [facility] Alk. Phosphatase 85 34 - 104 U/L [facility] Aspartate Aminotransferase 11(L) 13 - 39 U/L [facility] Alanine Aminotransferase 9 7 - 52 U/L [facility] Total Protein 6.7 6.4 - 8.9 g/dL [facility] Albumin 4.6 3.5 - 5.7 g/dL [facility] Calcium 9.8 8.6 - 10.3 mg/dL [facility] Anion Gap 14.8 7.0 - 15.0 mEq/L [facility] Globulin 2.1 2.0 - 3.5 g/dL [facility] EGFR 60(L) >60 ml/min/1. 73m2 [facility] Comment: This eGFR is calculated using 2020 CKD-EPI Creatinine equation without race modifier based on the NKF-ASN task force recommendations Equation: nXSB=837*min(SCr/k,1)a*max(SCr/k,1)-1.200*0.9938Age*1.012 (if female), where SCr is serum creatinine, k is 0.7 for females and 0.9 for males, and a is -0.241 for females and -0.302 for males Blood 12/02/2024 11:4 1 AM CDT Narrative [facility] - 12/02/2024 3:49 PM CDT Release to patient->Immediate IS THE PATIENT REQUIRED TO BE FASTING FOR 8 HOURS?->No us Coral Felton APRN, LASER ENGINEER CHEMISTRY ORDERABLES Final Result [facility] CENTRIFUGAL STATION OPERATOR [facility] [place] [address], * (ABNORMAL) COMPLETE BLOOD COUNT (CBC) WITH DIFF (12/02/2024 11:41 AM CDT) WBC 16.2(H) 4.0 - 10.0 10*3/uL [facility] HGB 12.3 11.2 - 15.7 g/dL [facility] CENTRIFUGAL STATION OPERATOR [facility] HCT 37.4 34.1 - 44.9 % [facility] CENTRIFUGAL STATION OPERATOR [facility] PLT 247 163 - 369 10*3/uL [facility] CENTRIFUGAL STATION OPERATOR [facility] MPV 10.4 9.4 - 12.4 fL [facility] CENTRIFUGAL STATION OPERATOR [facility] RBC 3.73(L) 3.93 - 5.22 10*6/uL [facility] CENTRIFUGAL STATION OPERATOR [facility] MCV 100(H) 79 - 95 fL [facility] CENTRIFUGAL STATION OPERATOR [facility] MCH 33.0(H) 25.6 - 32.2 pg [facility] CENTRIFUGAL STATION OPERATOR [facility] MCHC 32.9 32.2 - 36.5 g/dL [facility] CENTRIFUGAL STATION OPERATOR [facility] RDW 13.3 11.6 - 14.4 % [facility] CENTRIFUGAL STATION OPERATOR [facility] Absolute Neutrophil Count 5,184 cells/uL [facility] Absolute Seg Count 5,184 1,440 - 6,600 cells/uL [facility] CENTRIFUGAL STATION OPERATOR [facility] Absolute Lymph Count 9,396(H) 760 - 4,000 cells/uL [facility] CENTRIFUGAL STATION OPERATOR [facility] Absolute [place] Count 810 160 - 1,200 cells/uL [facility] CENTRIFUGAL STATION OPERATOR [facility] Absolute Eos Count 810(H) 0 - 300 cells/uL [facility] CENTRIFUGAL STATION OPERATOR [facility] Segmented Neutrophils 32(L) 36 - 66 % [facility] CENTRIFUGAL STATION OPERATOR [facility] Lymphocytes 57(H) 19 - 40 % [facility] Monocytes 5 4 - 12 % [facility] Eosinophils 5(H) 0 - 3 % [facility] Atypical Lymphs 1 0 - 2 % CAN[facility] ER CENTRIFUGAL STATION OPERATOR [facility] WBC Estimate High CAN[facility] CENTRIFUGAL STATION OPERATOR [facility] Platelet Estimate Normal [facility] CENTRIFUGAL STATION OPERATOR [facility] RBC Morphology Abnormal CANCE R CENTRIFUGAL STATION OPERATOR [facility] Macrocytosis 1+ [facility] CENTRIFUGAL STATION OPERATOR [facility] Smudge Cells Present [facility] CENTRIFUGAL STATION OPERATOR [facility] Blood 12/02/2024 11:4 1 AM CDT Narrative [facility] CENTRIFUGAL STATION OPERATOR [facility] - 12/03/2024 9:17 AM CDT Release to patient->Immediate us Coral Felton TURBINE TECHNICIAN, LASER ENGINEER HEMATOLOGY ORDERABLES Final Result [facility] CENTRIFUGAL STATION OPERATOR [facility] [place] [address], [place] [phone] from Last 3 Months Insurance MEDICARE C [employer] Care Teams Chopper Operator Relationship Specialty Start Date End Date Josephine Pagan MD PCP - General Family Medicine 05/21/19
--- OUTSIDE RECORDS SUMMARY | 2025-02-08 15:28 | XMS_ITS | Clinical Summary ---
Author Organization [facility] [employer] Address [address] [place] [address] Care Team Providers Care Retail Branch Manager Name Role Phone Dante Marie MD Primary Care Provider [phone] Source Comments [facility] [employer],non-owned Affiliates and Associated Physician Practices is amultiple site organization consisting of ambulatory clinics and hospital sitesin [place], [place], [place] and [place]. This disclosure is being madepursuant to the Care Everywhere program and may not contain all information available regarding this patient. Last updated 18.[facility] [employer] Allergies Active Allergy Reactions Criticality Noted Date Comments Bacitracin Other,Unknown High 09/06/2019 reddness and tearing Codeine Rash,Dizziness,Other Medium 09/12/2015 dizzy Guaifenesin Itching,Rash Medium 08/05/2011 Iodine Rash Medium 04/23/2019 Medications * Be aware that medications may not be up to date on this document. Alwaysverify current medications with the patient. metFORMIN (GLUCOPHAGE) 1000 MG tablet Take 1 (one) tablet by mouth 2 times daily 09/26/19 18 Active atorvastatin (LIPITOR) 20 MG tablet Take 1 (one) tablet by mouth once daily 05/08/19 19 Active albuterol (PROVENTIL;NOEMI SALINA) (2.5 MG/3ML) 0.083% nebulizer solution Inhale 2.5 (two and one-half) mg by mouth as needed 07/03/19 16 Active albuterol HFA (Proventil; Ventolin; Proair) 108 (90 Base) MCG/ACT inhaler Inhale 1 (one) puff to 2 (two) puffs by mouth as needed 01/14/20 18 Active fluticasone hfa 110 (Flovent HFA 110) 110 MCG/ACT inhaler Inhale 2 (two) puffs by mouth as needed 02/05/20 17 Active LANTUS SOLOSTAR pen Inject 24 (twenty four) Units subcutaneously at bedtime 01/19/20 20 Active aspirin EC (ECOTRIN) 81 MG tablet Take 1 (one) tablet by mouth once daily Active blood glucose (ACCU-CHEK GUIDE) test strip Use 1 (one) strip 1 Before Breakfast, 2 Before Dinner 04/03/20 20 Active ACCU-CHEK GUIDE test strip TEST 4 TIMES A DAY NEEDED 07/11/19 21 Active fluticasone propionate (FLONASE) 50 MCG/ACT nasal spray [place] 1 (one) spray to 2 (two) sprays into each nostril once daily 16 g 5 10/10/19 21 Active cyanocobalamin (VITAMIN B-12) 1000 MCG tablet Take 1 (one) tablet by mouth once daily Active lisinopril (Prinivil; Zestril) 2.5 MG tablet Take 1 (one) tablet by mouth 12/01/19 22 Active B-D UF III MINI PEN NEEDLES 31G X 5 MM needle USE ONCE DAILY AT BEDTIME WITH LANTUS PEN 01/24/20 22 Active polyethylene glycol 3350 (Miralax) 17 g packetIndication s:Chronic idiopathic constipation Take 17 (seventeen) g by mouth once daily 90 packet 3 03/25/20 22 Active bisacodyl EC (Dulcolax) 5 MG tabletIndication s:Chronic idiopathic constipation Take 1 (one) tablet by mouth 2 times daily 90 tablet 3 03/25/20 22 Active Additional Information Patient taking differently:5 mg OralDAILY PRN, Constipation, Reported on 03/15/2024 ondansetron (Zofran) 4 MG tabletIndication s:Esophageal dysphagia,Nausea and vomiting, unspecified vomiting type,Dyspepsia Take 1 (one) tablet by mouth every 8 hours as needed 60 tablet 1 10/29/19 23 Active omeprazole (PriLOSEC) 40 MG capsuleIndicatio ns:Esophageal dysphagia,Nausea and vomiting, unspecified vomiting type,Dyspepsia TAKE 1 (ONE) CAPSULE BY MOUTH DAILY BEFORE BREAKFAST FOR 60 DAYS 90 capsule 1 04/24/19 24 Active Additional Information Patient taking differently:40 mg Oral DAILY BEFORE BREAKFAST,PRN, Reported on 03/15/2024 vitamin D3 (Cholecalciferol ) 25 MCG (1000 UNITS) tablet Take 1 (one) tablet by mouth once daily Active Tirzepatide (Mounjaro) 7.5 MG/0.5ML SOPN Inject 7.5 mg subcutaneously every 7 days 01/19/20 24 Active traZODone (Desyrel) 50 MG tablet Take 1 (one) tablet by mouth once daily 10/08/19 24 Active ALPRAZolam (Xanax) 0.5 MG tablet Take 1 (one) tablet by mouth once daily as needed for Anxiety (take prior to MRI for anxiety) 1 tablet 07/15/19 25 Active valACYclovir (Valtrex) 1 GM tablet Take 0.5 (one-half) tablet by mouth 2 times daily 60 tablet 5 10/14/19 25 Active Active Problems Problem Noted Date Diagnosed Date History of nonmelanoma skin cancer 05/22/2022 03/18/2023 Schatzki's ring of distal esophagus 05/22/2022 03/18/2023 Mitral annular calcification 06/05/2021 Fatigue 10/09/2018 Snoring 10/09/2018 Chronic lymphocytic leukemia of B-cell type not having achieved remission 10/15/2016 Overview (07/21/2017): 13q del, IgVH mutated and [place] 70 negative Mixed hyperlipidemia 07/20/2015 Dyslipidemia 07/20/2015 03/18/2023 Acute recurrent maxillary sinusitis Acute recurrent ethmoidal sinusitis Hypertrophy of both inferior nasal turbinates Deviated nasal septum Adhesions of nasal septum and turbinates Immunizations Immunization Administration Dates Next Due ImpulseSave primary monoval ent 12+ yr 0.3mL Purple cap 01/31/2021,01/31/2021,07/07/2020,2020,06/15/2020,06/15/2020 HEP B IMMUNE GLOBULIN 08/28/1990 INFLUENZA VACCINE 02/15/2021, 0,03/19/2019,2017,02/04/2017,01/03/2016,02/28/2015,0 01/18/2013,01/16/2012,01/21/2008, 005,02/21/2004,02/22/1998 INFLUENZA VACCINE, ADJUVANTE D, QUADR. (FLUAD QUADRIVALENT; 65Y+) (AIIV4) 12/20/2019 INFLUENZA VACCINE, CELL CULT URE, QUADR. (FLUCELVAX QUADRIVALENT; 6MO+) (CCIIV4) 02/11/2018 INFLUENZA VACCINE, HIGH-DOSE , QUADR. (FLUZONE HIGH-DOSE QUADRIVALENT; 65Y+), 0.7 ML (HD-IIV4) 01/03/2016 INFLUENZA VACCINE, QUADR. (F LUZONE; FLULAVAL; FLUARIX; AFLURIA QUADRIVALENT; 6MO+), 0.5 ML (IIV4) 02/15/2021 PNEUMOCOCCAL PPSV23 06/30/2018,01/21/2008 Pneumococcal Pcv13 Conj 12/25/2018,01/03/2016 TD (ADULT), 5 LF TETANUS TOX OID, ADSORBED, PF 01/01/2007 TDAP (7yrs+) 11/20/2021,01/16/2012 TETANUS 08/28/1990 Td (Adult), 2 Lf Tetanus Tox oid, Adsorbed, Pf 08/28/1990 ZOSTER VACCINE, LIVE 02/07/2014 Zoster Hzv Vacc Recombinant Inj Im 04/06/2019, Family History Medical History Relation Name Comments Heart Disease Brother 1 Status: Deceas ed None Known Brother 2 Status: Alive None Known Daughter Status: Alive Heart Disease Father Status: Deceas ed Heart Disease Mother Status: Alive None Known Sister 1 Status: Alive None Known Sister 2 Status: Alive None Known Son Status: Alive Relation Name Status Comments Brother 1 Brother 2 Daughter Father Mother Sister 1 Sister 2 Son Social History Tobacco Use Types Packs/Day Years Used Date Smoking Tobacco: Never Smokeless Tobacco: Never Alcohol Use Standard Drinks/Week Comments No 0 (1 standard drink = 0.6 oz pur e alcohol) Comments No Sex and Gender Information Value Date Recorded Sex Assigned at Not on file Legal Sex Female 5:12 PM SOUND ENGINEER Gender Identity Not on file Sexual Orientation Not on file Last Filed Vital Signs Vital Sign Reading Time Taken Comments Blood Pressure 110/60 09/09/2024 2:05 PM CDT Pulse 72 09/09/2024 2:05 PM CDT Temperature 36.1 C (97 F) 09/09/2024 2:05 PM CDT Respiratory Rate 18 09/09/2024 2:05 PM CDT Oxygen Saturation 100% 09/09/2024 2:05 PM CDT Inhaled Oxygen Concentration - - Weight 83.1 kg (183 lb 3.2 oz) 09/09/2024 2:05 P M CDT Height 170.2 cm (5' 7) 09/09/2024 11:06 AM CDT Body Mass Index 28.69 09/09/2024 11:06 AM CDT Plan of Treatment Upcoming Encounters Date Type Department Care Team (Late st Contact Info) Description 03/07/2025 2:00 PM SOUND ENGINEER Office Visit [facility] - GI [address] [place] [address] 03/08/2025 9:20 AM SOUND ENGINEER Office Visit [facility] - Hematology/Oncology [address] [place] [id number] Elise Tabor MD [facility] [place] [address] Health Maintenance Due Date Last Done Comments COLOGUARD (AGES 45-75) - COLON CA SCREENING 1955 CT COLONOGRAPHY - COLON CA SCREENING 1955 FIT - COLON CA SCREENING 1955 FLEX SIG - COLON CA SCREENING 1955 HEPATITIS B VACCINE (2 of 3 - 19+ 3-dose series) 09/25/1990 08/28/1990 Respiratory Syncytial Virus (RSV) Vaccine Pt: or over 60 yrs (1 - Risk 60-74 years 1-dose series) 2013 DEPRESSION SCREENING 04/21/2024 MEDICARE AWV CALENDAR YEAR 2024 COVID-19 VACCINE (2024- season) 2024 01/31/2021, 01/31/2021, 07/07/2020, Additional history exists INFLUENZA VACCINE (#1) 2024 , 02/22/2022, 02/15/2021, Additional history exists MAMMOGRAM 05/20/2026 05/20/2024, 04/23, 04/29/2023, Additional history exists SCREENING FOR DIABETES 09/10/2027 , 08/10/2024, 07/13/2024, Additional history exists DTAP/TDAP/TD VACCINES (6 - Td or Tdap) 11/21/2031 11/20/2021, 01/16/2012, 01/01/2007, Additional history exists COLON MONITORING 06/04/2032 06/04/2022, 06/04/2022 COLONOSCOPY - COLON CA SCREENING 06/04/2032 06/04/2022, 06/04/2022 Colorectal Cancer Screening 06/04/2032 PNEUMOCOCCAL VACCINE 50+ Completed 019, 06/30/2018, 01/03/2016, Additional history exists ZOSTER VACCINE Completed 04/06/2019, 09/2018, 02/07/2014 HEPATITIS C SCREENING Completed 04/10/2023 BONE DENSITY TESTING Completed 08/05/2023, 01/18/2020, 01/23/2011 HIB VACCINE Aged Out No longer eligi ble based on patient's age to complete this topic HPV VACCINE Aged Out No longer eligi ble based on patient's age to complete this topic MENINGOCOCCAL (Group B) VACCINE SHARED DECISION-MAKING Aged Out No longer eligible based on patient's age to complete this topic MENINGOCOCCAL GROUPS A/C/Y/W VACCINE Aged Out No longer eligible based on patient's age to complete this topic Goals Goal Patient Goal Type Associated Problems Recent Progress Patient-Stated? Author Medication Management General On track( 024 2:04 PM SOUND ENGINEER) Denisha Hawk, RN Note: Expected end date: on-going Interventions: Take all medications as prescribed Let your doctor know right away about any changes in your medications Make sure to request a refill of your medication at least one week prior to your last dose Procedures Procedure Name Priority Date/Time Associated Diagnosis Comments COMPREHENSIVE METABOLIC PANEL STAT 09/09/2024 11:17 AM CDT Chronic lymphocytic leukemia of B-cell type not having achieved remission (HCC) Acute recurrent maxillary sinusitis ENDOSCOPY, COLON, DIAGNOSTIC Routine 06/04/2022 9:25 AM SOUND ENGINEER from Last 3 Months or Most Recently Relevant to Health Maintenance Results * (ABNORMAL) COMPREHENSIVE METABOLIC PANEL (09/09/2024 11:17 AM [facility]) BUN 14 7 - 26 mg/dL 09/09/2024 12:09 PM [facility] Creatinine 0.84 0.56 - 0.96 mg/dL 09/09/2024 12:09 PM [facility] Sodium 135(L) 136 - 145 mmol/L 09/09/2024 12:09 PM [facility] Potassium See Comment 3.5 - 4.5 mmol/L 09/09/2024 12:09 PM [facility] Comment:Significant hemolysi s detected in this specimen. Recommend repeat testing if clinically indicated. Chloride 106 98 - 107 mmol/L 09/09/2024 12:09 PM [facility] CO2 24 22 - 29 mmol/L 09/09/2024 12:09 PM [facility] Glucose 79 70 - 99 mg/dL 09/09/2024 12:09 PM [facility] Calcium 9.5 8.4 - 10.2 mg/dL 09/09/2024 12:09 PM [facility] Protein Total See Comment 6.0 - 8.3 g/dL 09/09/2024 12:09 PM [facility] Comment:Significant hemolysi s detected in this specimen. Hemolysis leads to artifactual elevations of this analyte. The result has been suppressed. Please reorder test and submit a new specimen if clinically indicated. Albumin 4.4 3.4 - 5.0 g/dL 09/09/2024 12:09 PM [facility] Bilirubin Total 0.3 0.2 - 1.2 mg/dL 09/09/2024 12:09 PM [facility] Alkaline Phosphatase 80 40 - 150 U/L 09/09/2024 12:09 PM [facility] ALT 20 5 - 55 U/L 09/09/2024 12:09 PM [facility] AST See Comment 5 - 34 Units/L 09/09/2024 12:09 PM [facility] Comment: Significant hemolysis detected in this specimen. Hemolysis leads to artifactual elevations of this analyte. The result has been suppressed. Please reorder test and submit a new specimen if clinically indicated. BUN/Creatinine Ratio 17 7 - 09/09/2024 12:09 PM [facility] Osmolality Calculated 279 275 - 295 mOsm/kg 09/09/2024 12:09 PM [facility] Albumin/Globuli n Ratio 1.2 1.1 - 2.3 09/09/2024 12:09 PM [facility] eGFR by CKD-EPI 74(L) >=90 mL/min/1. 73 m2 09/09/2024 12:09 PM [facility] Blood BLOOD SPECIMEN / Unknown Venipuncture / Unknown 09/09/2024 11:17 AM CDT 09/09/2024 11:29 AM CDT us Elise Tabor MD LAB - CHEMISTRY ORDERABLES Judy cooper Result Performing Organization Address City/State/[facility] Co de Phone Number [facility] [address] [place] [phone], [facility] [phone] * ENDOSCOPY, COLON, DIAGNOSTIC (06/04/2022 9:25 AM SOUND ENGINEER) Report Endoscopy POC Endoscopy Department Report _ Patient Name: Jackie Houston Procedure Date: 06/04/2022 9:25 AM Date of : 1955 Classification: Outpatient Gender: Female Ethnicity: Not or Race: White _ Providers: Hayden Lew MD: Procedure: Colonoscopy Indications: High risk colon cancer surveillance: Personal history of colonic polyps Medications: Monitored Anesthesia Care Description of Procedure: Pre-Anesthesia Assessment: - Prior to the procedure, a History and Physical was performed, and patient medications and allergies were reviewed. The patient's tolerance of previous anesthesia was also reviewed. The risks and benefits of the procedure and the sedation options and risks were discussed with the patient. All questions were answered, and informed consent was obtained. Prior Anticoagulants: The patient has taken no previous anticoagulant or antiplatelet agents. ASA Grade Assessment: III - A patient with severe systemic disease. After reviewing the risks and benefits, the patient was deemed in satisfactory condition to undergo the procedure. After I obtained informed consent, the scope was passed under direct vision. Throughout the procedure, the patient's blood pressure, pulse, and oxygen saturations were monitored continuously. The Colonoscope was introduced through the anus and advanced to the cecum, identified by appendiceal orifice and ileocecal valve. The colonoscopy was performed without difficulty. The patient tolerated the procedure well. The quality of the bowel preparation was excellent. The ileocecal valve, appendiceal orifice, and rectum were photographed. Findings: The perianal and digital rectal examinations were normal. Three sessile polyps were found in the transverse colon. The polyps were 4 to 6 mm in size. These polyps were removed with a cold snare. Resection and retrieval were complete. Three sessile polyps were found in the descending colon. The polyps were 4 to 6 mm in size. These polyps were removed with a cold snare. Resection and retrieval were complete. External and internal hemorrhoids were found during retroflexion. The hemorrhoids were large. Estimated Blood Loss: Estimated blood loss was minimal. Complications: No immediate complications. Impression: - Three 4 to 6 mm polyps in the transverse colon, removed with a cold snare. Resected and retrieved. - Three 4 to 6 mm polyps in the descending colon, removed with a cold snare. Resected and retrieved. - External and internal hemorrhoids. Recommendation: - Patient has a contact number available for emergencies. The signs and symptoms of potential delayed complications were discussed with the patient. Return to normal activities tomorrow. Written discharge instructions were provided to the patient. - Resume previous diet. - Continue present medications. - Await pathology results. - Repeat colonoscopy in 3 - 5 years for surveillance. - Return to referring physician as previously scheduled. Attending Participation: I was present and participated during the entire procedure, including non-major portions. Procedure Code(s): --- Professional --- 68690, Colonoscopy, flexible; with removal of tumor(s), polyp(s), or other lesion(s) by snare technique Diagnosis Code(s): --- Professional --- Z86.010, Personal history of colonic polyps K63.5, Polyp of colon K64.8, Other hemorrhoids CPT copyright 2019 [employer]. All rights reserved. The codes documented in this report are preliminary and upon screen door maker review may be revised to meet current compliance requirements. Hayden Barron, 06/04/2022 10:28:22 AM Note Initiated On: 06/04/2022 9:25 AM Number of Addenda: [id number] [place] [address] PROVATION 06/04/2022 9:25 AM SOUND ENGINEER [facility] Hayden Barron MD GI PROCEDURE O RDERABLES Edited Result - Final [facility] PROVATION from Last 3 Months or Most Recently Relevant to Health Maintenance Insurance [employer] MEDICARE ADV AET[employer] Care Teams Retail Branch Manager Relationship Specialty Start Date End Date Dante Marie MD [address] [address] PCP - General Family Medicine 09/17/22
== END 2025-02-08 12:49 | disposition home or self-care (01) ==
PROVIDERS: Visit Provider Urology
DX: N20.0 Calculus of kidney (principal)
CPT/HCPCS: 74018